=== PATIENT | female | born 1955 | race Two or more races ===

== ENCOUNTER 2023-12-18 18:16 | Emergency (ER) | payer BC, OTHER ==
[~2023-12-18] VITALS: Ht 160 cm; Wt 76.7 kg
[2023-12-18 18:37] VITALS: BP 132/108; PULSE 83; RESP 16; TEMP 97.1; O2SAT 92
[2023-12-18] MEDS: DexAMETHasone SOD PHOS 10MG/1ML VIAL INJ IM ONE (21:53)
[2023-12-18] MEDS ORDERED: METH4PAK PO (22:24)
== END 2023-12-18 22:41 | disposition home or self-care (01) ==
LOC: ER 18:16
DX: S39.012A Strain of muscle, fascia and tendon of lower back, initial encounter (principal); J45.909 Unspecified asthma, uncomplicated; M19.90 Unspecified osteoarthritis, unspecified site; Z98.890 Other specified postprocedural states; Z79.899 Other long term (current) drug therapy; W18.39XA Other fall on same level, initial encounter; Y93.89 Activity, other specified; Y92.89 Other specified places as the place of occurrence of the external cause; Y99.8 Other external cause status
CPT/HCPCS: 72100; 96372; 99283; J1100

== ENCOUNTER 2023-12-24 14:30 | Emergency (ER) | payer OTHER ==
[~2023-12-24] VITALS: Ht 160 cm; Wt 78.0 kg
[~2023-12-24 14:30] MED LIST: METH4PAK PO
[2023-12-24 16:21] LABS: Urine Bacteria None Seen /hpf (None Seen)
[2023-12-24 17:06] LABS: Urine Blood Negative /uL (Negative); Urine Clarity Clear (Clear); Urine Color Yellow (Yellow); Urine Hyaline Cast MOD /lpf (0 - 2); Urine Mucus FEW (None Seen); Urine Protein, UAD 1+ (Negative); Urine Specific Gravity 1.039 (1.001-1.035); Urine Urobilinogen 2 mg/dL (Negative); Urine WBC 6 /hpf (0 - 5)
[2023-12-24 18:29] VITALS: BP 123/88; PULSE 85; RESP 16; TEMP 97.4; O2SAT 96
[2023-12-24] MEDS ORDERED: ACE3T PO (18:49)
[2023-12-24] MEDS ORDERED: CYCL-837 PO (18:49)
[2023-12-24] MEDS ORDERED: BACDST PO (18:49)
[2023-12-24] MEDS: cefTRIAXone SOD 1,000 MG VL IM ONE (18:50)
[2023-12-24] MEDS: methylPREDNISolone SOD SUCC 125 MG/2 ML VL IM ONE (18:58)
[2023-12-24] MEDS ORDERED: KETOROLAC TROMETH 60MG/2ML VIAL IM ONE (19:00)
[2023-12-24] MEDS: ONDANSETRON ODT 4 MG TAB PO ONE (19:02)
== END 2023-12-24 18:53 | disposition home or self-care (01) ==
LOC: ER 14:30
DX: S39.012A Strain of muscle, fascia and tendon of lower back, initial encounter (principal); N39.0 Urinary tract infection, site not specified; J45.909 Unspecified asthma, uncomplicated; Z98.51 Tubal ligation status; X58.XXXA Exposure to other specified factors, initial encounter; Y93.89 Activity, other specified; Y92.89 Other specified places as the place of occurrence of the external cause; Y99.8 Other external cause status
CPT/HCPCS: 81001; 96372; 99284; J0696; J2919; Q0162; J1885

== ENCOUNTER 2024-07-03 14:03 | Inpatient (IN) | payer OTHER ==
[~2024-07-03] VITALS: Ht 160 cm; Wt 77.0 kg
[~2024-07-03 14:03] MED LIST changes: +ACE3T PO; +BACDST PO; +CYCL-837 PO
--- NOTE | 2024-07-03 14:27 | ED.PDOC ---
History of Present Illness HPI Comments 68-year-old female brought by paramedics from home because she was having dizziness chest pain could not recall events about an hour ago while sitting in her sofa. Patient never had symptoms like this in the past. Her blood pressure was 197/108. Blood pressure normalized after coming to the ER. She continues to have chest pain dizziness feeling different as per patient. Denies any other symptoms. Chief Complaint: High Blood Pressure Time Seen by MD: 14:22 Primary Care Provider: ODILIA Reviewed Notes: Nurses Notes, Medications, Allergies Allergies: Coded Allergies: NO KNOWN ALLERGIES (Unverified , 12/18/23) Home Meds Active Scripts Acetaminophen W/ Codeine (Tylenol W/Cod #3) 1 Tab Tb, 1 TAB PO Q6HPRN, #10 TAB 0 Refills Prov:CALVIN CHAKRABORTY 12/24/23 Sulfamethoxazole W/Trimethopri (Bactrim Ds Tablet) 1 Tab Tb, 1 TAB PO BID for 7 Days, #14 TAB 0 Refills Prov:CALVIN CHAKRABORTY 12/24/23 Cyclobenzaprine Hcl (Cyclobenzaprine Hcl) 5 Mg Tab, 1 TAB PO QHSP, #14 TAB 0 Refills Prov:CALVIN CHAKRABORTY 12/24/23 Methylprednisolone (Medrol Dosepak) 4 Mg Luis Manuel, 4 MG PO UD for 6 Days, #21 TAB UAD Prov:ERIN LONDON 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 12/18/23 Information Source: Patient, Emergency Med Personnel Mode of Arrival: EMS Severity: Moderate Timing: Hours Duration: Since onset Past Medical History PAST MEDICAL HISTORY: Arthritis, Asthma, High Lipids Surgical History: Tubal Ligation Family History Family History: Unknown Social History Smoker: Non-Smoker Alcohol: Occasionally Drugs: Denies Drug Use Lives In: Home Constitutional: denies: chills, diaphoresis, fatigue, fever, malaise, sweats, weakness, others EENTM: denies: blurred vision, double vision, ear bleeding, ear discharge, ear drainage, ear pain, ear ringing, eye pain, eye redness, hearing loss, mouth pain, mouth swelling, nasal discharge, nose bleeding, nose congestion, nose pain, photophobia, tearing, throat pain, throat swelling, voice changes, others Respiratory: denies: cough, hemoptysis, orthopnea, SOB at rest, shortness of breath, SOB with excertion, stridor, wheezing, others Cardiovascular: reports: chest pain; denies: dizzy spells, diaphoresis, Dyspnea on exertion, edema, irregular heart beat, left arm pain, lightheadedness, palpitations, PND, syncope, others Gastrointestinal: denies: abdomen distended, abdominal pain, blood streaked bowels, constipated, diarrhea, dysphagia, difficulty swallowing, hematemesis, melena, nausea, poor appetite, poor fluid intake, rectal bleeding, rectal pain, vomiting, others Genitourinary: denies: abnormal vagina bleeding, burning, dyspareunia, dysuria, flank pain, frequency, hematuria, incontinence, pain, , vagina discharge, urgency, others Neurological: reports: dizziness; denies: fainting, headache, left sided numbness, left sided weakness, numbness, paresthesia, pre-existing deficit, right sided numbness, right sided weakness, seizure, speech problems, tingling, tremors, weakness, others Musculoskeletal: denies: back pain, gout, joint pain, joint swelling, muscle pain, muscle stiffness, neck pain, others Integumetry: denies: bruises, change in color, change in hair/nails, dryness, laceration, lesions, lumps, rash, wounds, others Allergic/Immunocompromised: denies: Difficulty Healing, Frequent Infections, Hives, Itching, others Hematologic/Lymphatic: denies: anemia, blood clots, easy bleeding, easy bruising, swollen glands, others Endocrine: denies: excessive hunger, excessive sweating, excessive thirst, excessive urination, flushing, intolerance to cold, intolerance to heat, unexplained weight gain, unexplained weight loss, others Psychiatric: denies: anxiety, bipolar disorder, depression, hopeless, panic disorder, schizophrenia, sleepless, suicidal, others Physical Exam General Appearance: Moderate Distress HEENT: Normal ENT Inspection, Pharynx Normal, TMs Normal Neck: Full Range of Motion, Non-Tender, Normal, Normal Inspection Respiratory: Chest Non-Tender, Lungs Clear, No Accessory Muscle Use, No Respiratory Distress, Normal Breath Sounds Cardiovascular: No Edema, No JVD, No Murmur, No Gallop, Normal Peripheral Pulses, Regular Rate/Rhythm Breast Exam: Deferred Gastrointestinal: No Organomegaly, Non Tender, No Pulsatile Mass, Normal Bowel Sounds, Soft Genitalia: Deferred Pelvic: Deferred Rectal: Deferred Extremities: No calf tenderness, Normal inspection, No pedal edema Musculoskeletal : Apperance: Normal 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 Was a procedure done?: No EKG EKG : [place]: Normal Cardiac Rhythm: NSR Differential Dx Considerations may include: Autonomic disorder Electrolyte imbalance X-Ray, Labs, Meds, VS Vital Signs Date Time Temp Pulse Resp B/P (MAP) Pulse Ox O2 Delivery O2 Flow Rate FiO2 07/03/24 14:52 92 13 94 Room Air* 0 21 07/03/24 14:51 98.4 92 13 147/78 (101) 94 98.4 07/03/24 14:30 77 07/03/24 14:15 98.1 74 21 166/95 (118) 98 98.1 07/03/24 14:07 73 Lab Test 07/03/24 15:33 07/03/24 14:32 Range/Units Urine Color Pending Urine Clarity Pending Urine pH Pending Urine Specific [place] Pending Urine Protein Pending Urine Ketones Pending Urine Blood Pending Urine Nitrite Pending Urine Bilirubin Pending Urine Urobilinogen Pending Urine Leukocyte Esterase Pending Urine RBC Pending Urine Microscopic WBC Pending Urine Squamous Epithelial Cells Pending Urine Bacteria Pending Urine Glucose Pending White Blood Count 4.4 4.4-10.8 10^3/uL Red Blood Count 4.22 4.0-5.20 10^6/uL Hemoglobin 12.8 12.2-16.2 g/dL Hematocrit 38.5 36.0-46.0 % Mean Corpuscular Volume 91.2 80.0-100.0 fL Mean Corpuscular Hemoglobin 30.2 28.0-32.0 pg Mean Corpuscular Hemoglobin Concent 33.2 32.0-36.0 g/dL Red Cell Distribution Width 13.3 11.8-14.3 % Platelet Count 181 140-450 10^3/uL Mean Platelet Volume 8.0 6.9-10.8 fL Neutrophils (%) (Auto) 70.3 37.0-80.0 % Lymphocytes (%) (Auto) 20.5 10.0-50.0 % Monocytes (%) (Auto) 7.0 0.0-12.0 % Eosinophils (%) (Auto) 0.8 0.0-7.0 % Basophils (%) (Auto) 1.4 0.0-2.0 % Neutrophils # (Auto) 3.1 1.6-8.6 10 ^3/uL Lymphocytes # (Auto) 0.9 0.4-5.4 10 ^3/uL Monocytes # (Auto) 0.3 0-1.3 10 ^3/uL Eosinophils # (Auto) 0 0-0.8 10 ^3/uL Basophils # (Auto) 0.1 0-0.2 10 ^3/uL Nucleated Red Blood Cells 0.1 % Sodium Level 142 136-145 mmol/L Potassium Level 4.6 3.5-5.1 mmol/L Chloride Level 104 98-107 mmol/L Carbon Dioxide Level 30 20-31 mmol/L Anion Gap 8 5-15 Blood Urea Nitrogen 16 9-23 mg/dL Creatinine 0.83 0.550-1.02 mg/dL Glomerular Filtration Rate Calc 78 >90 mL/min BUN/Creatinine Ratio 19.3 10.0-20.0 Serum Glucose 113 H 74-106 mg/dL Calcium Level 10.1 8.7-10.4 mg/dL Troponin I High Sensitivity 9 </=34 ng/L Current Medications Medications (Trade) Dose Ordered Sig/Froy Route Start Time Stop Time Status Last Admin Meclizine HCl (Antivert Tablet) 25 mg ONCE ONCE PO 07/03/24 14:30 07/03/24 14:31 DC 07/03/24 14:45 Aspirin 325 mg ONCE ONCE PO 07/03/24 14:30 07/03/24 14:31 DC 07/03/24 14:45 Patient alert pain Complaining of chest pain dizziness. Vitals stable. Answering questions. Blood pressure normalized. Saturation pristine on room air. Has good muscle strength. CT scan of the head not show any acute changes small-vessel disease. Possible TIA. Reviewed her history. Explained to the patient. Continue monitoring. Possibly will need MRI. EKG reviewed does not show any acute changes. Time of 1ST Reevaluation: 14:26 Reevaluation 1ST: Unchanged Patient Education/Counseling: Diagnosis, Treatment, Prognosis Family Education/Counseling: No Family Present Departure 1 Departure Time of Disposition: 14:27 Impression: Primary Impression: TIA (transient ischemic attack) Additional Impression: Autonomic disorder Disposition: ADMITTED INPATIENT Admit to: Med Surg Condition: Guarded Critical Care Note Critical Care Time?: No Stability Stability form required: No Heart Score Heart Score: Heart Score Response (Comments) Value History Slightly Suspicious 0 EKG Normal 0 Age >65 2 Risk Factors 1 or 2 risk factors 1 Troponin Normal limit 0 Total 3 DAPHNE SERRANO MD Jul 03, 2024 14:27
[2024-07-03] MEDS: ASPirin 325 MG TAB PO ONE (14:45)
[2024-07-03] MEDS: MECLIZINE HCL 25 MG TAB PO ONE (14:45)
[2024-07-03 14:49] LABS: Basophils # (auto) 0.1 10 ^3/uL (0-0.2); Basophils % (auto) 1.4 % (0.0-2.0); Eosinophils # (auto) 0 10 ^3/uL (0-0.8); Eosinophils % (auto) 0.8 % (0.0-7.0); Hematocrit 38.5 % (36.0-46.0); Hemoglobin 12.8 g/dL (12.2-16.2); Lymphocytes # (auto) 0.9 10 ^3/uL (0.4-5.4); Lymphocytes % (auto) 20.5 % (10.0-50.0); Mean Corpuscular Hemoglobin 30.2 pg (28.0-32.0); Mean Corpuscular Hgb Conc. 33.2 g/dL (32.0-36.0); Mean Corpuscular Volume 91.2 fL (80.0-100.0); Monocytes # (auto) 0.3 10 ^3/uL (0-1.3); Neutrophils # (auto) 3.1 10 ^3/uL (1.6-8.6); Neutrophils % (auto) 70.3 % (37.0-80.0); Nucleated Red Blood Cells % 0.1 %; Platelet Count (auto) 181 10^3/uL (140-450); Red Blood Cells 4.22 10^6/uL (4.0-5.20); Red Cell Distribution Width 13.3 % (11.8-14.3); White Blood Cell 4.4 10^3/uL (4.4-10.8)
[2024-07-03 14:52] VITALS: PULSE 92; RESP 13; O2SAT 94
[2024-07-03 14:56] LABS: Chloride 104 mmol/L (98-107); Potassium 4.6 mmol/L (3.5-5.1); Sodium 142 mmol/L (136-145)
[2024-07-03 14:57] LABS: Anion Gap 8 (5-15); Calcium 10.1 mg/dL (8.7-10.4); Carbon Dioxide 30 mmol/L (20-31)
--- NOTE | 2024-07-03 15:00 | DVH ---
EXAM: CT Head Without Intravenous Contrast CLINICAL INDICATION: tia TECHNIQUE: Axial computed tomography images of the head/brain without intravenous contrast. This CT exam was performed using one or more of the following dose reduction techniques: automated exposure control, adjustment of the mA and/or kV according to patient size, and/or use of iterative reconstru ction technique. CONTRAST: COMPARISON: None FINDINGS: BRAIN AND EXTRA-AXIAL SPACES: The cerebral and cerebellar sulci are mildly prominent consistent wit h mild brain atrophy. No acute intracranial hemorrhage, midline shift or mass effect. If symptoms pe rsist, further evaluation with MRI is recommended. Mild areas of decreased attenuation in the deep c erebral white matter are consistent with mild small vessel ischemic/degenerative changes. BONES/JOINTS: Unremarkable. No acute fracture. SOFT TISSUES: Unremarkable. SINUSES: Unremarkable as visualized. No acute sinusitis. MASTOID AIR CELLS: Unremarkable as visualized. No mastoid effusion. OTHER FINDINGS: . . . . IMPRESSION: 1. No acute intracranial hemorrhage, midline shift or mass effect. If symptoms persist, further eval uation with MRI is recommended. 2. Mild small vessel ischemic/degenerative changes.
[2024-07-03 15:02] LABS: BUN/Creatinine Ratio 19.3 (10.0-20.0); Blood Urea Nitrogen 16 mg/dL (9-23)
[2024-07-03 15:04] LABS: Glucose 113 mg/dL (74-106)
[2024-07-03 15:42] LABS: Urine Bacteria None Seen /hpf (None Seen)
[2024-07-03 15:53] LABS: Urine Blood Negative /uL (Negative); Urine Clarity Clear (Clear); Urine Color Light-Yellow (Yellow); Urine Hyaline Cast FEW /lpf (0 - 2); Urine Protein, UAD Negative (Negative); Urine Specific Gravity 1.011 (1.001-1.035); Urine Squamous Epithelial Cell FEW /hpf (<5); Urine Urobilinogen Normal (Negative); Urine WBC 3 /HPF (0-5)
[2024-07-03 19:27] VITALS: PULSE 64; RESP 10; O2SAT 95
--- NOTE | 2024-07-03 19:27 | DVHHP2 ---
History of Present Illness Reason for Visit: Generalized weakness History of Present Illness This is a 68-year-old female with history of arthritis, asthma, hyperlipidemia who presents to ED via EMS due to complaints of dizziness associated with chest pain and mild disorientation that occurred today. The patient denies having similar symptoms in the past. The patient blood pressure noted to be 197/108, has never been diagnosed with hypertension. When speaking with the patient, she comments on increased stressors in her life that may be contributing to her symptoms. She denies recent injury or trauma to her head. She states that she started having hot flash then pain in the back of her head with notable palpitation and felt that her blood pressure was rising ending with brain fog. The patient is concerned about her symptoms and would like to be further evaluated and treated. The patient will be admitted under hospitalist care to the telemetry unit for continuous monitoring. The patient denies fever, chills, headache, dizziness, palpitation, chest pain, nausea, vomiting, a bdominal pain, diarrhea, constipation and other associated symptoms. The plan has been discussed with the patient in which all questions concerns have been addressed. Cardiovascular: hyperipidemia Pulmonary: Asthma Musculoskeletal: Other (Arthritis) Past Surgical History: Tubal Ligation Past Surgical History Bilateral carpal tunnel syndrome Lanieedel tonya Family History: None Smoke: No ALCOHOL: none Drugs: None Lives: with Family Domestic Violence: Neg Review of Systems Constitutional: Yes: Weakness Cardiovascular: Palpitations Neurological: Confusion, Other (Dizziness) Allergies: Coded Allergies: NO KNOWN ALLERGIES (Unverified , 12/18/23) Exam Vital Signs Vital Signs Date Time Temp Pulse Resp B/P (MAP) Pulse Ox O2 Delivery O2 Flow Rate FiO2 07/03/24 18:00 65 10 122/74 (90) 07/03/24 14:52 94 Room Air* 0 21 07/03/24 14:51 98.4 98.4 General Appearance: Alert, Oriented X3, Cooperative, No acute distress HEENT: Atraumatic, PERRLA, Mucous membr. moist/pink Respiratory: Clear to auscultation, Normal air movement Cardiovascular: Normal S1, Normal S2, No murmurs Abdominal: Normal bowel sounds, Soft, No tenderness, No hepatospenomegaly, No masses Extremities: No clubbing, No cyanosis, No edema, Normal pulses, No tenderness/swelling Skin: No rashes, No breakdown Neuro: Normal gait, Normal speech, Strength at 5/5 X4 ext, Normal tone, Sensation intact, Cranial nerves 3-12 NL, Reflexes 2+ Psych/Mental Status: Mental status NL Labs/Xrays Labs Test 07/03/24 16:40 07/03/24 15:33 07/03/24 14:32 Range/Units Troponin I High Sensitivity 25 </=34 ng/L Urine Color Light-yellow Yellow Urine Clarity Clear Clear Urine pH 7.0 5.0-9.0 Urine Specific [place] 1.011 1.001-1.035 Urine Protein Negative Negative Urine Ketones Negative Negative Urine Blood Negative Negative /uL Urine Nitrite Negative Negative Urine Bilirubin Negative Negative Urine Urobilinogen Normal Negative mg/dL Urine Leukocyte Esterase 1+ Negative /uL Urine RBC 3 0 - 4 /hpf Urine Microscopic WBC 3 0-5 /HPF Urine Squamous Epithelial Cells Few <5 /hpf Urine Bacteria None seen None Seen /hpf Urine Hyaline Casts Few 0 - 2 /lpf Urine Glucose Normal Normal mg/dL White Blood Count 4.4 4.4-10.8 10^3/uL Red Blood Count 4.22 4.0-5.20 10^6/uL Hemoglobin 12.8 12.2-16.2 g/dL Hematocrit 38.5 36.0-46.0 % Mean Corpuscular Volume 91.2 80.0-100.0 fL Mean Corpuscular Hemoglobin 30.2 28.0-32.0 pg Mean Corpuscular Hemoglobin Concent 33.2 32.0-36.0 g/dL Red Cell Distribution Width 13.3 11.8-14.3 % Platelet Count 181 140-450 10^3/uL Mean Platelet Volume 8.0 6.9-10.8 fL Neutrophils (%) (Auto) 70.3 37.0-80.0 % Lymphocytes (%) (Auto) 20.5 10.0-50.0 % Monocytes (%) (Auto) 7.0 0.0-12.0 % Eosinophils (%) (Auto) 0.8 0.0-7.0 % Basophils (%) (Auto) 1.4 0.0-2.0 % Neutrophils # (Auto) 3.1 1.6-8.6 10 ^3/uL Lymphocytes # (Auto) 0.9 0.4-5.4 10 ^3/uL Monocytes # (Auto) 0.3 0-1.3 10 ^3/uL Eosinophils # (Auto) 0 0-0.8 10 ^3/uL Basophils # (Auto) 0.1 0-0.2 10 ^3/uL Nucleated Red Blood Cells 0.1 % Sodium Level 142 136-145 mmol/L Potassium Level 4.6 3.5-5.1 mmol/L Chloride Level 104 98-107 mmol/L Carbon Dioxide Level 30 20-31 mmol/L Anion Gap 8 5-15 Blood Urea Nitrogen 16 9-23 mg/dL Creatinine 0.83 0.550-1.02 mg/dL Glomerular Filtration Rate Calc 78 >90 mL/min BUN/Creatinine Ratio 19.3 10.0-20.0 Serum Glucose 113 H 74-106 mg/dL Calcium Level 10.1 8.7-10.4 mg/dL ORDERING PHYSICIAN: DPAHNE SERRANO MD PROCEDURE(s): HWOCT - HEAD WITHOUT CONTRAST REASON: tia ORDER NUMBER(s): [id number], ACCESSION NUMBER(s): [id number] EXAM: CT Head Without Intravenous Contrast CLINICAL INDICATION: tia TECHNIQUE: Axial computed tomography images of the head/brain without intraveno us contrast. This CT exam was performed using one or more of the following dose reduction techniques: automated exposure control, adjustment of the mA and/or kV according to patient size, and/or use of iterative reconstruction technique. CONTRAST: COMPARISON: None FINDINGS: BRAIN AND EXTRA-AXIAL SPACES: The cerebral and cerebellar sulci are mildly prominent consistent with mild brain atrophy. No acute intracranial hemorrhage, midline shift or mass effect. If symptoms persist, further evaluation with MRI is recommended. Mild areas of decreased attenuation in the deep cerebral white matter are consistent with mild small vessel ischemic/degenerative changes. BONES/JOINTS: Unremarkable. No acute fracture. SOFT TISSUES: Unremarkable. SINUSES: Unremarkable as visualized. No acute sinusitis. MASTOID AIR CELLS: Unremarkable as visualized. No mastoid effusion. OTHER FINDINGS: . . . . IMPRESSION: 1. No acute intracranial hemorrhage, midline shift or mass effect. If symptoms persist, further evaluation with MRI is recommended. 2. Mild small vessel ischemic/degenerative changes. ATED BY: KIANA CASTRO MD DICTATED DATE/TIME: 07/03/24 [id number] SIGNED BY: KIANA CASTRO MD SIGNED DATE/TIME: 07/03/248 CC: Assessment/Plan Assessment/Plan Generalized weakness--patient with chief complaint of dizziness associated with chest pain, palpitation and brain fog that started today Denies having these symptoms in the past No recent injury or trauma to her head In ED her blood pressure was 197/108 Patient reports increased life stressor Admit to telemetry unit for continuous monitoring Reviewed CBC which was normal Urinalysis is normal Reviewed BMP which is normal Cardiac enzyme negative x2 Reviewed CT head which is negative Meclizine as needed for dizziness Orthostatic BP Q shift Carotid Doppler study pending Echocardiogram pending We will consider workforce development vice president if further evaluation and recommendation as needed ER physician consult neuro for evaluation and recommendation Elevated blood pressure The patient has not been diagnosed with hypertension Start lisinopril now and daily Continue to monitor BP Asthma-controlled Albuterol q.2h p.r.n. shortness of breath Reconcile home medication DVT prophylaxis PUD prophylaxis not indicated no history of GERD Labs in a.m. Discussed plan of care with the patient and primary RN in which all questions concerns have been addressed Plan discussed with: Patient Date of Service: Jul 03, 2024 Billing Provider: MARII DIALLO Common Visit Codes: [id number] INP/OBS CARE (HIGH) MARII DIALLO Jul 03, 2024 19:27
[2024-07-03] MEDS ORDERED: MORPHINE SULFATE INJ 2 MG/ml SYRG IV PRN (19:30)
[2024-07-03] MEDS ORDERED: NITROGLYCERIN 0.4 MG SL TAB SL PRN (19:30)
[2024-07-03] MEDS ORDERED: MECLIZINE HCL 25 MG TAB PO PRN (19:45)
[2024-07-03] MEDS: CYCLOBENZAPRINE HCL 10 MG TAB PO SCH (22:00)
[2024-07-03] MEDS: ACETAMINOPHEN 325 MG TAB PO PRN (22:09)
[2024-07-03] MEDS: ACETAMINOPHEN/CODEINE#3 (300/30mg) TAB PO PRN (22:13)
[2024-07-04] VITALS (9 sets, daily range): BP systolic 120–141; BP diastolic 63–75; PULSE 56–96; RESP 14–18; TEMP 97.9–99; O2SAT 93–99
[2024-07-04 06:05] LABS: Basophils # (auto) 0 10 ^3/uL (0-0.2); Basophils % (auto) 0.4 % (0.0-2.0); Eosinophils # (auto) 0.2 10 ^3/uL (0-0.8); Eosinophils % (auto) 3.2 % (0.0-7.0); Hematocrit 38.2 % (36.0-46.0); Hemoglobin 12.7 g/dL (12.2-16.2); Lymphocytes # (auto) 1.7 10 ^3/uL (0.4-5.4); Lymphocytes % (auto) 30.9 % (10.0-50.0); Mean Corpuscular Hemoglobin 30.3 pg (28.0-32.0); Mean Corpuscular Hgb Conc. 33.2 g/dL (32.0-36.0); Mean Corpuscular Volume 91.4 fL (80.0-100.0); Monocytes # (auto) 0.5 10 ^3/uL (0-1.3); Monocytes % (auto) 9.4 % (0.0-12.0); Neutrophils # (auto) 3.1 10 ^3/uL (1.6-8.6); Neutrophils % (auto) 56.1 % (37.0-80.0); Platelet Count (auto) 179 10^3/uL (140-450); Red Blood Cells 4.18 10^6/uL (4.0-5.20); Red Cell Distribution Width 13.4 % (11.8-14.3); White Blood Cell 5.5 10^3/uL (4.4-10.8)
[2024-07-04 06:22] LABS: Alanine Aminotransferase 35 U/L (7-40); Albumin 4.7 g/dL (3.2-4.8); Alkaline Phosphatase 49 U/L (46-116); Anion Gap 9 (5-15); Aspartate Aminotransferase 18 U/L (13-40); BUN/Creatinine Ratio 15.9 (10.0-20.0); Blood Urea Nitrogen 13 mg/dL (9-23); Calcium 9.9 mg/dL (8.7-10.4); Carbon Dioxide 27 mmol/L (20-31); Chloride 107 mmol/L (98-107); Glucose 93 mg/dL (74-106); Potassium 3.6 mmol/L (3.5-5.1); Sodium 143 mmol/L (136-145); Total Protein 7.1 g/dL (5.7-8.2)
[2024-07-04 06:23] LABS: Bilirubin, Total 0.5 mg/dL (0.2-1.0)
[2024-07-04] MEDS: ASPirin 81 mg TAB PO SCH (09:44)
[2024-07-04] MEDS: ENOXAPARIN SOD 40 MG/0.4 ML SYRINGE SC SCH (09:46)
[2024-07-04] MEDS ORDERED: ATORVASTATIN 20 MG TAB PO ONE (10:15)
--- NOTE | 2024-07-04 10:57 | ECG ---
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
--- NOTE | 2024-07-04 11:09 | DVH ---
PROCEDURE: US CAROTID DUPLX W COLOR DOP 07/04/2024 10:09 AM INDICATION: Dizziness COMPARISON: None TECHNIQUE: Real-time grayscale and color Doppler images of the neck arteries were obtained with spect ral analysis performed. FINDINGS: RIGHT: No significant atherosclerotic plaque identified in the carotid. Normal spectral waveforms are seen. ICA peak systolic velocity: 114 cm/s ICA end-diastolic velocity: 42 cm/s ICA/CCA ratios: 1.2 LEFT: No significant atherosclerotic plaque identified in the carotid. Normal spectral waveforms are seen. ICA peak systolic velocity: 133 cm/s ICA end-diastolic velocity: 48 cm/s ICA/CCA ratios: 1.4 VERTEBRAL ARTERIES: Normal antegrade flow is seen bilaterally. Normal spectral waveforms. IMPRESSION: 1. No hemodynamically significant carotid artery stenosis identified bilaterally. Reference: Radiology 2003; 229:340-346 Normal ICA PSV is <125 cm/sec and no plaque or intimal thickening is visible sonographically addition al criteria include ICA/CCA PSV ratio <2.0 and ICA EDV <40 cm/sec <50% ICA stenosis ICA PSV is <125 cm/sec and plaque or intimal thickening is visible sonographically additional criteria include ICA/CCA PSV ratio <2.0 and ICA EDV <40 cm/sec 50-69% ICA stenosis ICA PSV is 125-230 cm/sec and plaque is visible sonographically additional criter ia include ICA/CCA PSV ratio of 2.0-4.0 and ICA EDV of 40-100 cm/sec 70% ICA stenosis but less than near occlusion ICA PSV is >230 cm/sec and visible plaque and luminal narrowing are seen at fine-scale and color Doppler ultrasound (the higher the Doppler parameters lie above the threshold of 230 cm/sec, the greater the likelihood of severe disease) additional criteria include ICA/CCA PSV ratio >4 and ICA EDV >100 cm/sec
[2024-07-04] MEDS: LEVALBUTEROL HCL 1.25 MG/3 ML NEB NEB SCH (11:12)
[2024-07-04] MEDS: IPRATROPIUM BROM 0.5 MG/2.5ML INH SOL NEB SCH (11:12)
[2024-07-04] MEDS: PANTOPRAZOLE 40 MG/10 ML VIAL INJ IV ONE (12:52)
--- NOTE | 2024-07-04 14:04 | DVHSR ---
APPROVED REPORT EXAM: Two-dimensional and M-mode echocardiogram with Doppler and color Doppler. Blood Pressure: 132/68 mmHg INDICATION Dizziness RISK FACTORS Height: 5'3", Weight: 167 DIMENSIONS LVDd4.3 (3.8-5.7cm)LA (2D)3.8 (1.9-4.0cm)Aortic Root3.3 (2.0-3.7cm) LVDs2.8 (2.5-4.0cm)LA (MM) (1.9-4.0cm)Aortic Cusp Exc1.7 (1.5-2.0cm) EF (%) 65.0 (55-70%)Rt. Atrium3.2 (1.9-4.0cm)Asc. Aorta cm IVSd0.8 (0.7-1.1cm)RV (D) (1.8-2.4cm) PWd0.9 (0.7-1.1cm) Mitral Valve MitralMitral Stenosis E wave0.92m/sMV Mean GR.mmHg A wave0.82m/sMV Peak GR.mmHg E/A ratio1.12D MVAcm2 DECEL [id number] 1/2 Timems Aortic Valve Aortic ValveAortic Stenosis V10.97m/Norberto Mean GR.5mmHg V21.49m/Norberto Peak GR.9mmHg LVOT Diameter2.0 (1.8-2.4cm)Doppler AVA2.04cm2 Pulmonic Valve V20.77m/s Tricuspid Valve TR Velocity2.59m/s [id number] Conclusion MILD LVH AND MILD LV DIASTOLIC DYSFUNCTION LV EF IS 70% AND IS NORMAL NORMAL VALVES NORMAL RV FUNCTION AND SIZE RVSP IS 30 MM OF HG AND IS NORMAL NO EFFUSION
[2024-07-04] MEDS: D5W 5% 1,000 ML IV SCH (16:52)
--- NOTE | 2024-07-04 17:32 | DVHPNRES ---
Progress Note Date Seen: Jul 04, 2024 Resident Creating Document: ERNESTO MUNOZ RESIDENT Medical Necessity Reason Pt with a Central, PICC or Fol: No Subjective Review of Systems This is a 68-year-old female with history of arthritis, asthma, hyperlipidemia who presents to ED via EMS due to complaints of dizziness associated with chest pain and mild disorientation that occurred today. The patient denies having similar symptoms in the past. The patient blood pressure noted to be 197/108, has never been diagnosed with hypertension. When speaking with the patient, she comments on increased stressors in her life that may be contributing to her symptoms. She denies recent injury or trauma to her head. She states that she started having hot flash then pain in the back of her head with notable palpitation and felt that her blood pressure was rising ending with brain fog. The patient is concerned about her symptoms and would like to be further evaluated and treated. The patient will be admitted under hospitalist care to the telemetry unit for continuous monitoring. The patient denies fever, chills, headache, dizziness, palpitation, chest pain, nausea, vomiting, abdominal pain, diarrhea, constipation and other associated symptoms. CT head negative for acute intracranial hemorrhage or infarction. Mild small vessel ischemic/degenerative changes. Carotid Doppler- 1. No hemodynamically significant carotid artery stenosis identified bilaterally. ECHO 2D revealed LVEF 70%, LVH. Mild LV diastolic dysfunction, RVSP 30 mm of mercury. Cardiovascular: hyperipidemia, asthma, carpal tunnel syndrome Past Surgical History: Tubal Ligation Past Surgical History Bilateral carpal tunnel syndrome Family History: None Smoke: No ALCOHOL: none Drugs: None Lives: with Family Domestic Violence: Neg Patient was seen today at the bedside. Cardiovascular- deny acute chest pain or shortness of breath or cough or palpitation Respiratory denies cough or short of breath or wheezing Musculoskeletal-denies acute joint swelling or tenderness or redness Neurological- denies acute dysarthria, dysphagia, change in vision Psychiatry- denies depression or SI or HI Skin- denies acute rash or purpura Patient was seen today for clinical evaluation. Labs and chart reviewed. Patient still complained of dizziness, nausea and vomiting. Chest pain no shortness a breath likely due to hypertensive urgency. No blood. Patient was put on IV fluid. CT head negative for acute intracranial hemorrhage or infarction. Mild small vessel ischemic/degenerative changes. Carotid Doppler- 1. No hemodynamically significant carotid artery stenosis identified bilaterally. Objective vital signs Vital Sign Date Time Temp Pulse Resp B/P (MAP) Pulse Ox O2 Delivery O2 Flow Rate FiO2 07/04/24 15:32 97.9 68 121/64 (83) 95 97.9 07/04/24 15:32 16 Room Air* 0 21 medications Current Medications Medications Dose Ordered Sig/Froy Route Start Time Stop Time Status Last Admin Dose Admin Enoxaparin Sodium 40 mg DAILY SC 07/04/24 10:00 Acetaminophen 650 mg Q6HP PRN PO 07/03/24 19:30 07/04/24 12:52 650 MG Nitroglycerin 0.4 mg Q5MINP PRN SL 07/03/24 19:30 Morphine Sulfate 2 mg Q30M PRN IV 07/03/24 19:30 Acetaminophen/ Codeine Phosphate 1 tab Q6HPRN PRN PO 07/04/24 00:00 07/03/24 22:13 1 TAB Cyclobenzaprine HCl 5 mg QHSP PO 07/03/24 22:00 Aspirin 81 mg DAILY PO 07/04/24 10:00 07/04/24 09:44 81 MG Atorvastatin Calcium 40 mg HS PO 07/04/24 22:00 Levalbuterol HCl 1.25 mg Q6HR NEB 07/04/24 12:00 07/04/24 11:12 1.25 MG Ipratropium [place] 0.5 mg Q6HWA NEB 07/04/24 12:00 07/04/24 11:12 0.5 MG Pantoprazole Sodium 40 mg DAILY IV 07/05/24 10:00 Meclizine HCl 25 mg Q12HR PO 07/04/24 22:00 Dextrose 1,000 ml @ 75 mls/hr [id number] IV 07/04/24 15:45 07/04/24 16:52 75 MLS/HR Examination General examination- alert, oriented HEENT- PEERLA, no acute nasal discharge Cardiovascular- S1-S2 audible, rate and rhythm regular, no murmur Respiratory- CTAB, no wheeze or rhonchi Gastrointestinal-nontender, bowel sound+. Nondistended Musculoskeletal-no acute joint swelling or tenderness or redness Lower extremity- no leg edema Neurological- cranial nerves intact, no acute dysarthria or dysphagia Psychiatry- denies depression or SI or HI Skin- no acute rash or purpura laboratory and microbiology Laboratory Tests 07/04/24 05:32 Test 07/04/24 05:32 Range/Units Serum Glucose 93 74-106 mg/dL Problem List/Assessment/Plan Problem List/Assessment/Plan Assessment and plan Hypertensive urgency Intractable nausea and vomiting, unable to tolerate oral diet Dizziness, headache likely due to hypertensive urgency Hypertensive cardiomyopathy Chest pain and shortness of breaths likely due to hypertensive urgency Asthma, no acute exacerbation Hyperlipidemia Obesity Plan Continue current medication Continue IV fluid patient can not tolerate p.o. fluid, intractable nausea and vomiting To continue meclizine as prescribed Monitor blood pressure Goals of care, Code status ; discussed with >15 minutes PUD prophylaxis: Pantoprazole DVT prophylaxis: Lovenox Plan discussed with Dr. Nieto , nursing staff, Total time spent on patient evaluation, chart review, assessment and plan, discussion discussion >35 minutes Plan discussed with: Patient, Other (RN) My Orders My Orders Orders - ERNESTO MUNOZ Procedure Category Date Status Time Pantoprazole PHA 07/05/24 In Process (Protonix) 10:00 Meclizine Tablet PHA 07/04/24 In Process (Antivert Tablet) 22:00 Pt Request For Service PT 07/04/24 Logged 15:32 D5w 5% (Dextrose 5%) PHA 07/04/24 In Process 15:45 Date of Service: Jul 04, 2024 Billing Provider: KIERA MARIA MD Common Visit Codes: [id number] INP/OBS CARE(HIGH) ERNESTO MUNOZ Jul 04, 2024 17:32 KIERA MARIA MD Jul 07, 2024 00:54
[2024-07-04] MEDS: MECLIZINE HCL 25 MG TAB PO SCH (21:32)
[2024-07-05] VITALS (11 sets, daily range): BP systolic 115–144; BP diastolic 66–82; PULSE 56–77; RESP 14–18; TEMP 36.9; O2SAT 94–98
[2024-07-05] MEDS: ATORVASTATIN 20 MG TAB PO SCH (02:06)
[2024-07-05 06:43] LABS: Chloride 107 mmol/L (98-107); Potassium 4.3 mmol/L (3.5-5.1); Sodium 142 mmol/L (136-145)
[2024-07-05 06:44] LABS: Anion Gap 8 (5-15); Carbon Dioxide 27 mmol/L (20-31)
[2024-07-05 06:45] LABS: Calcium 9.9 mg/dL (8.7-10.4)
[2024-07-05 06:49] LABS: BUN/Creatinine Ratio 14.5 (10.0-20.0); Blood Urea Nitrogen 11 mg/dL (9-23); Glucose 97 mg/dL (74-106)
[2024-07-05 06:50] LABS: Magnesium 2.2 mg/dL (1.6-2.6)
[2024-07-05] MEDS: PANTOPRAZOLE 40 MG/10 ML VIAL INJ IV SCH (08:54)
[2024-07-05] MEDS ORDERED: AMLO1TAB22 PO (15:56)
--- NOTE | 2024-07-05 17:42 | DVHDSRES ---
Discharge Summary Date of Admission Resident Creating Document: ERNESTO MUNOZ RESIDENT Jul 03, 2024 at 19:27 Date of Discharge: Jul 05, 2024 Admitting Diagnosis Hypertensive urgency Labs/Diagnostic Data: Laboratory Results Test 07/05/24 06:00 07/04/24 05:32 07/03/24 19:44 07/03/24 15:33 Sodium Level 142 mmol/L (136-145) Potassium Level 4.3 mmol/L (3.5-5.1) Chloride Level 107 mmol/L (98-107) Carbon Dioxide Level 27 mmol/L (20-31) Anion Gap 8 (5-15) Blood Urea Nitrogen 11 mg/dL (9-23) Creatinine 0.76 mg/dL (0.550-1.02) Glomerular Filtration Rate Calc 86 mL/min (>90) BUN/Creatinine Ratio 14.5 (10.0-20.0) Serum Glucose 97 mg/dL (74-106) Hemoglobin A1c 5.5 % A1C (<5.7) Calcium Level 9.9 mg/dL (8.7-10.4) Magnesium Level 2.2 mg/dL (1.6-2.6) Thyroid Stimulating Hormone (TSH) 4.55 uIU/mL (0.55-4.78) White Blood Count 5.5 10^3/uL (4.4-10.8) Red Blood Count 4.18 10^6/uL (4.0-5.20) Hemoglobin 12.7 g/dL (12.2-16.2) Hematocrit 38.2 % (36.0-46.0) Mean Corpuscular Volume 91.4 fL (80.0-100.0) Mean Corpuscular Hemoglobin 30.3 pg (28.0-32.0) Mean Corpuscular Hemoglobin Concent 33.2 g/dL (32.0-36.0) Red Cell Distribution Width 13.4 % (11.8-14.3) Platelet Count 179 10^3/uL (140-450) Mean Platelet Volume 7.8 fL (6.9-10.8) Neutrophils (%) (Auto) 56.1 % (37.0-80.0) Lymphocytes (%) (Auto) 30.9 % (10.0-50.0) Monocytes (%) (Auto) 9.4 % (0.0-12.0) Eosinophils (%) (Auto) 3.2 % (0.0-7.0) Basophils (%) (Auto) 0.4 % (0.0-2.0) Neutrophils # (Auto) 3.1 10 ^3/uL (1.6-8.6) Lymphocytes # (Auto) 1.7 10 ^3/uL (0.4-5.4) Monocytes # (Auto) 0.5 10 ^3/uL (0-1.3) Eosinophils # (Auto) 0.2 10 ^3/uL (0-0.8) Basophils # (Auto) 0 10 ^3/uL (0-0.2) Nucleated Red Blood Cells 0.0 % Total Bilirubin 0.5 mg/dL (0.2-1.0) Aspartate Amino Transferase (AST) 18 U/L (13-40) Alanine Aminotransferase (ALT) 35 U/L (7-40) Alkaline Phosphatase 49 U/L (46-116) Total Protein 7.1 g/dL (5.7-8.2) Albumin 4.7 g/dL (3.2-4.8) Troponin I High Sensitivity 26 ng/L (</=34) Urine Color Light-yellow (Yellow) Urine Clarity Clear (Clear) Urine pH 7.0 (5.0-9.0) Urine Specific [place] 1.011 (1.001-1.035) Urine Protein Negative (Negative) Urine Ketones Negative (Negative) Urine Blood Negative /uL (Negative) Urine Nitrite Negative (Negative) Urine Bilirubin Negative (Negative) Urine Urobilinogen Normal mg/dL (Negative) Urine Leukocyte Esterase 1+ /uL (Negative) Urine RBC 3 /hpf (0 - 4) Urine Microscopic WBC 3 /HPF (0-5) Urine Squamous Epithelial Cells Few /hpf (<5) Urine Bacteria None seen /hpf (None Seen) Urine Hyaline Casts Few /lpf (0 - 2) Urine Glucose Normal mg/dL (Normal) Other Laboratory Tests 07/05/24 06:00 07/04/24 05:32 Brief Hx & Hospital Course: This is a 68-year-old female with history of arthritis, asthma, hyperlipidemia who presents to ED via EMS due to complaints of dizziness associated with chest pain and mild disorientation that occurred today. The patient denies having similar symptoms in the past. The patient blood pressure noted to be 197/108, has never been diagnosed with hypertension. When speaking with the patient, she comments on increased stressors in her life that may be contributing to her symptoms. She denies recent injury or trauma to her head. She states that she started having hot flash then pain in the back of her head with notable palpitation and felt that her blood pressure was rising ending with brain fog. The patient is concerned about her symptoms and would like to be further evaluated and treated. The patient will be admitted under hospitalist care to the telemetry unit for continuous monitoring. The patient denies fever, chills, headache, dizziness, palpitation, chest pain, nausea, vomiting, abdominal pain, diarrhea, constipation and other associated symptoms. CT head negative for acute intracranial hemorrhage or infarction. Mild small vessel ischemic/degenerative changes. Carotid Doppler- No hemodynamically significant carotid artery stenosis identified bilaterally. ECHO 2D revealed LVEF 70%, LVH. Mild LV diastolic dysfunction, RVSP 30 mm of mercury. Hospital course-This is a 68-year-old female with history of arthritis, asthma, hyperlipidemia who presents to ED via EMS due to complaints of dizziness associated with chest pain and mild disorientation that occurred today. The patient denies having similar symptoms in the past. The patient blood pressure noted to be 197/108, has never been diagnosed with hypertension. When speaking with the patient, she comments on increased stressors in her life that may be contributing to her symptoms. She denies recent injury or trauma to her head. She states that she started having hot flash then pain in the back of her head with notable palpitation and felt that her blood pressure was rising ending with brain fog. The patient is concerned about her symptoms and would like to be further evaluated and treated. The patient will be admitted under hospitalist care to the telemetry unit for continuous monitoring. The patient denies fever, chills, headache, dizziness, palpitation, chest pain, nausea, vomiting, abdominal pain, diarrhea, constipation and other associated symptoms. CT head negative for acute intracranial hemorrhage or infarction. Mild small vessel ischemic/degenerative changes. Carotid Doppler- No hemodynamically significant carotid artery stenosis identified bilaterally. ECHO 2D revealed LVEF 70%, LVH. Mild LV diastolic dysfunction, RVSP 30 mm of mercury. Patient was treated conservatively. Patient's symptoms improved gradually. Patient is able to tolerate oral diet. Patient denied any chest pain or shortness of breath or dizziness this morning. Patient is being discharged home with amlodipine 5 mg p.o. daily. Patient was advised to follow up with the primary care physician in 1 week. Patient's meds were sent to the pharmacy electronically. Patient was hemodynamically stable on discharge. Assessment Hypertensive urgency Dizziness, headache likely due to hypertensive urgency Hypertensive cardiomyopathy Chest pain and shortness of breaths likely due to hypertensive urgency Asthma, no acute exacerbation Hyperlipidemia Obesity Plan Amlodipine 5 mg p.o. daily Resume other home medications Please follow up with the primary care physician in 1 week Operations or Procedures [place] [address] Ph: [phone] DIAGNOSTIC IMAGING Diagnostic Imaging Report : [id number] Signed PATIENT: RICK FREEMAN ACCT: [id number] UNIT: [id number] : 1955 LOC: ER ROOM / BED: / AGE / SEX: 68 / F ADM STATUS: REG ER SERVICE 1427 ORDERING PHYSICIAN: DAPHNE SERRANO MD PROCEDURE(s): HWOCT - HEAD WITHOUT CONTRAST REASON: tia ORDER NUMBER(s): [id number], ACCESSION NUMBER(s): [id number] EXAM: CT Head Without Intravenous Contrast CLINICAL INDICATION: tia TECHNIQUE: Axial computed tomography images of the head/brain without intravenous contrast. This CT exam was performed using one or more of the following dose reduction techniques: automated exposure control, adjustment of the mA and/or kV according to patient size, and/or use of iterative reconstruction technique. CONTRAST: COMPARISON: None FINDINGS: BRAIN AND EXTRA-AXIAL SPACES: The cerebral and cerebellar sulci are mildly prominent consistent with mild brain atrophy. No acute intracranial hemorrhage, midline shift or mass effect. If symptoms persist, further evaluation with MRI is recommended. Mild areas of decreased attenuation in the deep cerebral white matter are consistent with mild small vessel ischemic/degenerative changes. BONES/JOINTS: Unremarkable. No acute fracture. SOFT TISSUES: Unremarkable. SINUSES: Unremarkable as visualized. No acute sinusitis. MASTOID AIR CELLS: Unremarkable as visualized. No mastoid effusion. OTHER FINDINGS: . . . . IMPRESSION: 1. No acute intracranial hemorrhage, midline shift or mass effect. If symptoms persist, further evaluation with MRI is recommended. 2. Mild small vessel ischemic/degenerative changes. ATED BY: KIANA TAVARES MD DICTATED DATE/TIME: 07/03/241457 SIGNED BY: KIANA TAVARES MD SIGNED DATE/TIME: 07/03/241457 CC: [address] [id number] Ph: [phone] DIAGNOSTIC IMAGING Diagnostic Imaging Report : [id number] Signed PATIENT: RICK FREEMAN ACCT: [id number] UNIT: [id number] : 1955 LOC: OVERFLOW ROOM / BED: [id number] / A AGE / SEX: 68 / F ADM STATUS: ADM IN SERVICE 1000 ORDERING PHYSICIAN: MARII DIALLO ASSOCIATE SOFTWARE DEVELOPMENT ENGINEER PROCEDURE(s): CARCL - CAROTID DUPLX W COLOR DOP REASON: Dizziness ORDER NUMBER(s): [id number], ACCESSION NUMBER(s): [id number] PROCEDURE: US CAROTID DUPLX W COLOR DOP 07/04/2024 10:09 AM INDICATION: Dizziness COMPARISON: None TECHNIQUE: Real-time grayscale and color Doppler images of the neck arteries were obtained with spectral analysis performed. FINDINGS: RIGHT: No significant atherosclerotic plaque identified in the carotid. Normal spectral waveforms are seen. ICA peak systolic velocity: 114 cm/s ICA end- diastolic velocity: 42 cm/s ICA/CCA ratios: 1.2 LEFT: No significant atherosclerotic plaque identified in the carotid. Normal spectral waveforms are seen. ICA peak systolic velocity: 133 cm/s ICA end- diastolic velocity: 48 cm/s ICA/CCA ratios: 1.4 VERTEBRAL ARTERIES: Normal antegrade flow is seen bilaterally. Normal spectral waveforms. IMPRESSION: 1. No hemodynamically significant carotid artery stenosis identified bilaterally. Reference: Radiology 2003; 229:340-346 Normal ICA PSV is <125 cm/sec and no plaque or intimal thickening is visible sonographically additional criteria include ICA/CCA PSV ratio <2.0 and ICA EDV <40 cm/sec <50% ICA stenosis ICA PSV is <125 cm/sec and plaque or intimal thickening is visible sonographically additional criteria include ICA/CCA PSV ratio <2.0 and ICA EDV <40 cm/sec 50-69% ICA stenosis ICA PSV is 125-230 cm/sec and plaque is visible sonographically additional criteria include ICA/CCA PSV ratio of 2.0-4.0 and ICA EDV of 40-100 cm/sec 70% ICA stenosis but less than near occlusion ICA PSV is >230 cm/sec and visible plaque and luminal narrowing are seen at fine-scale and color Doppler ultrasound (the higher the Doppler parameters lie above the threshold of 230 cm/sec, the greater the likelihood of severe disease) additional criteria include ICA/CCA PSV ratio >4 and ICA EDV >100 cm/sec ATED BY: NURIS WATERMAN MD DICTATED DATE/TIME: 07/04/24 1106 SIGNED BY: NURIS WATERMAN MD SIGNED DATE/TIME: 07/04/24 1106 CC: [place] [address] Ph: [phone] DIAGNOSTIC IMAGING Diagnostic Imaging Report : [id number] Signed PATIENT: RICK FREEMAN ACCT: [id number] UNIT: [id number] : 1955 LOC: OVERFLOW ROOM / BED: [address] [place] [address] AGE / SEX: 68 / F ADM STATUS: ADM IN SERVICE 26 ORDERING PHYSICIAN: MARII DIALLO PROCEDURE(s): ECIDC - ECHO 2D MODE CARDIAC DOP REASON: Dizziness ORDER NUMBER(s): [id number], ACCESSION NUMBER(s): [id number] APPROVED REPORT EXAM: Two-dimensional and M-mode echocardiogram with Doppler and color Doppler. Blood Pressure: 132/68 mmHg INDICATION Dizziness RISK FACTORS Height: 5'3", Weight: 167 DIMENSIONS LVDd 4.3 (3.8-5.7cm) LA (2D) 3.8 (1.9-4.0cm) Aortic Root 3.3 (2.0- 3.7cm) LVDs 2.8 (2.5-4.0cm) LA (MM) (1.9-4.0cm) Aortic Cusp Exc 1.7 (1.5- 2.0cm) EF (%) 65.0 (55-70%) Rt. Atrium 3.2 (1.9-4.0cm) Asc. Aorta cm IVSd 0.8 (0.7-1.1cm) RV (D) (1.8-2.4cm) PWd 0.9 (0.7-1.1cm) Mitral Valve Mitral Mitral Stenosis E wave 0.92m/s MV Mean GR. mmHg A wave 0.82m/s MV Peak GR. mmHg E/A ratio 1.1 2D MVA cm2 DECEL Time 176ms PRESS 1/2 Time ms Aortic Valve Aortic Valve Aortic Stenosis V1 0.97m/s AO Mean GR. 5mmHg V2 1.49m/s AO Peak GR. 9mmHg LVOT Diameter 2.0 (1.8-2.4cm) Doppler PADMA 2.04cm2 Pulmonic Valve V2 0.77m/s Tricuspid Valve TR Velocity 2.59m/s RVSP 30mmHg Conclusion MILD LVH AND MILD LV DIASTOLIC DYSFUNCTION LV EF IS 70% AND IS NORMAL NORMAL VALVES NORMAL RV FUNCTION AND SIZE RVSP IS 30 MM OF HG AND IS NORMAL NO EFFUSION SIGNED BY: LUMA CARR MD SIGNED DATE/TIME: 07/04/24 1404 CC: Condition at Discharge: Stable Final Diagnosis/Problems List Hypertensive urgency Dizziness, headache likely due to hypertensive urgency Hypertensive cardiomyopathy Chest pain and shortness of breaths likely due to hypertensive urgency Asthma, no acute exacerbation Hyperlipidemia Obesity Discharge Disposition: Home Discharge Instruct/Medications Diet: Cardiac 2g Na,low cholest Activity: No Restrictions, As Tolerated Follow Up/Referral: Please follow up with the primary care physician in 1 Medications: AMLODIPINE 5 MG PO QD Please resume other home medication Discharge Statement: "Patient was advised to return to the ER or call 911 if any headaches, dizziness, shortness of breath, chest pain, abdominal pain, bleeding, fevers, or worsening of medical condition. Patient was counseled about treatment plan, medications, possible side effects, patientverbalized understanding. All questions were answered to the best of my ability. This discharge took greater then 30 minutes in planning, reviewing documentation, counseling the patient, and discussing with other team members." ASSESSMENT ASSESSMENT Assessment Hypertensive urgency Intractable nausea and vomiting, unable to tolerate oral diet Dizziness, headache likely due to hypertensive urgency Hypertensive cardiomyopathy Chest pain and shortness of breaths likely due to hypertensive urgency Asthma, no acute exacerbation Hyperlipidemia Obesity Date of Service: Jul 05, 2024 Billing Provider: KIERA MARIA MD Common Visit Codes: [id number]/OBS DISCH DAY >30min ERNESTO MUNOZ RESIDENT Jul 05, 2024 17:42 KIERA MARIA MD Jul 07, 2024 01:08
== END 2024-07-05 17:00 | disposition home or self-care (01) | DRG 305 ==
LOC: ER 14:03 → EDBD 14:03 → OVERFLOW 19:27 → TELE-WESTW 07-04 15:18
PROVIDERS: ADMIT Student in an Organized Health Care Education/Training Program; ATTEND Student in an Organized Health Care Education/Training Program
DX: I16.0 Hypertensive urgency (principal); G45.9 Transient cerebral ischemic attack, unspecified; I43 Cardiomyopathy in diseases classified elsewhere; J45.909 Unspecified asthma, uncomplicated; K59.00 Constipation, unspecified; E78.5 Hyperlipidemia, unspecified; G90.89 Other disorders of autonomic nervous system; I11.9 Hypertensive heart disease without heart failure; E66.9 Obesity, unspecified; Z68.30 Body mass index [BMI] 30.0-30.9, adult; Z98.51 Tubal ligation status; Z79.899 Other long term (current) drug therapy
CPT/HCPCS: 36415; 70450; 80048; 80053; 81001; 83036; 83735; 84443; 84484; 85025; 93005; 93306; 93886; 94640; 97163; G0378

== ENCOUNTER 2024-07-15 15:48 | Inpatient (IN) | payer MEDICARE, OTHER ==
[~2024-07-15] VITALS: Ht 160 cm; Wt 80.4 kg
[~2024-07-15 15:48] MED LIST changes: +AMLO1TAB22 PO
--- NOTE | 2024-07-15 16:05 | ECG ---
[facility] Test Date: 2024-07-15 Test Time: 16:01:26 Pat Name: RICK FREEMAN Department: ER Room: [address] [place] [address] Gender: F Courtroom Deputy: TANYA : 1955 Requested By: ISHMAEL WASHBURN Order Number: [id number] Reading MD: Jf Melendez Measurements Intervals [place] Rate: 81 P: 69 MD: 165 QRS: 23 QRSD: 88 T: 34 QT: 369 QTc: 429 Interpretive Statements Sinus rhythm Baseline wander in lead(s) I,II,aVR Electronically Signed On 07-16-2024 9:20:50 PDT by Jf Melendez Please click the below link to view image of tracing.
--- NOTE | 2024-07-15 16:15 | ED.PDOC ---
History of Present Illness HPI Comments 69 y/o F, with PMHx of TIA, HTN, HLD, arthritis, and asthma presents to the ED for CC of left sided numbness. Patient states, that she has been experiencing left-sided numbness with associated symptoms of headache, dizziness, and disorientation x1day. Patient relays, that she was previously hospitalized at [facility] for Dx:TIA and is unsure if symptoms are related. Patient denies blurred vision, chest pain, shortness of breath, nausea, or vomiting. No other symptoms or modifying factors present at this time. Time Seen by MD: 16:00 Primary Care Provider: ODILIA Reviewed Notes: Nurses Notes, Medications, Allergies Allergies: Coded Allergies: NO KNOWN ALLERGIES (Unverified , 12/18/23) Home Meds Active Scripts Amlodipine Besylate (Amlodipine Besylate) 5 Mg Tab, 1 TAB PO DAILY for 60 Days, #60 TAB Prov:ERNESTO MUNOZ RESIDENT 07/05/24 Acetaminophen W/ Codeine (Tylenol W/Cod #3) 1 Tab Tb, 1 TAB PO Q6HPRN, #10 TAB 0 Refills Prov:CALVIN CHAKRABORTY 12/24/23 Sulfamethoxazole W/Trimethopri (Bactrim Ds Tablet) 1 Tab Tb, 1 TAB PO BID for 7 Days, #14 TAB 0 Refills Prov:CALVIN CHAKRABORTY 12/24/23 Cyclobenzaprine Hcl (Cyclobenzaprine Hcl) 5 Mg Tab, 1 TAB PO QHSP, #14 TAB 0 Refills Prov:CALVIN CHAKRABORTY 12/24/23 Methylprednisolone (Medrol Dosepak) 4 Mg Luis Manuel, 4 MG PO UD for 6 Days, #21 TAB UAD Prov:ERIN LONDON ARMORING MACHINE OPERATOR 12/18/23 Information Source: Patient Mode of Arrival: Ambulatory Severity: Moderate Timing: Days Duration: Since onset Prehospital treatment: None Past Medical History PAST MEDICAL HISTORY: Arthritis, Asthma, High Lipids, HTN, TIA Surgical History: Tubal Ligation Family History Family History: Unknown Social History Smoker: Non-Smoker Alcohol: Occasionally Drugs: Denies Drug Use Lives In: Home Constitutional: denies: chills, diaphoresis, fatigue, fever, malaise, sweats, weakness, others EENTM: denies: blurred vision, double vision, ear bleeding, ear discharge, ear drainage, ear pain, ear ringing, eye pain, eye redness, hearing loss, mouth pain, mouth swelling, nasal discharge, nose bleeding, nose congestion, nose pain, photophobia, tearing, throat pain, throat swelling, voice changes, others Respiratory: denies: cough, hemoptysis, orthopnea, SOB at rest, shortness of breath, SOB with excertion, stridor, wheezing, others Cardiovascular: denies: chest pain, dizzy spells, diaphoresis, Dyspnea on exertion, edema, irregular heart beat, left arm pain, lightheadedness, palpitations, PND, syncope, others Gastrointestinal: denies: abdomen distended, abdominal pain, blood streaked bowels, constipated, diarrhea, dysphagia, difficulty swallowing, hematemesis, melena, nausea, poor appetite, poor fluid intake, rectal bleeding, rectal pain, vomiting, others Genitourinary: denies: abnormal vagina bleeding, burning, dyspareunia, dysuria, flank pain, frequency, hematuria, incontinence, pain, , vagina discharge, urgency, others Neurological: reports: dizziness, left sided numbness, left sided weakness; denies: fainting, headache, numbness, paresthesia, pre-existing deficit, right sided numbness, right sided weakness, seizure, speech problems, tingling, tremors, weakness, others Musculoskeletal: denies: back pain, gout, joint pain, joint swelling, muscle pain, muscle stiffness, neck pain, others Integumetry: denies: bruises, change in color, change in hair/nails, dryness, laceration, lesions, lumps, rash, wounds, others Allergic/Immunocompromised: denies: Difficulty Healing, Frequent Infections, Hives, Itching, others Hematologic/Lymphatic: denies: anemia, blood clots, easy bleeding, easy bruising, swollen glands, others Endocrine: denies: excessive hunger, excessive sweating, excessive thirst, excessive urination, flushing, intolerance to cold, intolerance to heat, unexplained weight gain, unexplained weight loss, others Psychiatric: denies: anxiety, bipolar disorder, depression, hopeless, panic disorder, schizophrenia, sleepless, suicidal, others All Other Systems: Reviewed and Negative Physical Exam General Appearance: Mild Distress HEENT: Normal ENT Inspection, Pharynx Normal, TMs Normal Neck: Full Range of Motion, Non-Tender, Normal, Normal Inspection Respiratory: Chest Non-Tender, Lungs Clear, No Accessory Muscle Use, No Respiratory Distress, Normal Breath Sounds Cardiovascular: No Edema, No JVD, No Murmur, No Gallop, Normal Peripheral Pulses, Regular Rate/Rhythm Breast Exam: Deferred Gastrointestinal: No Organomegaly, Non Tender, No Pulsatile Mass, Normal Bowel Sounds, Soft Genitalia: Deferred Pelvic: Deferred Rectal: Deferred Extremities: No calf tenderness, Normal capillary refill, No pedal edema Musculoskeletal : Apperance: Normal Neurologic: Alert, glazier supervisor II-XII nml as Tested, No Motor Deficits, Normal Affect, Normal Mood, No Sensory Deficits Cerebellar Function: Normal Reflexes: Normal Skin: Dry, Normal Color, Warm Lymphatic: No Adenopathy Was a procedure done? Was a procedure done?: No EKG EKG : Pulse Rate (adult): 81 [place]: Normal Cardiac Rhythm: NSR Block: None Hypertrophy: None ST: Normal Differential Dx Considerations may include: STROKE, TIA X-Ray, Labs, Meds, VS Vital Signs Date Time Temp Pulse Resp B/P (MAP) Pulse Ox O2 Delivery O2 Flow Rate FiO2 07/15/24 17:50 78 16 96 Room Air* 0 21 07/15/24 17:50 98.1 78 16 139/88 (105) 96 98.1 07/15/24 16:54 98.4 79 18 132/91 (105) 97 98.4 07/15/24 16:15 81 07/15/24 16:01 81 Lab Test 07/15/24 16:41 07/15/24 16:10 Range/Units White Blood Count 5.3 4.4-10.8 10^3/uL Red Blood Count 4.48 4.0-5.20 10^6/uL Hemoglobin 13.5 12.2-16.2 g/dL Hematocrit 39.6 36.0-46.0 % Mean Corpuscular Volume 88.5 80.0-100.0 fL Mean Corpuscular Hemoglobin 30.1 28.0-32.0 pg Mean Corpuscular Hemoglobin Concent 34.0 32.0-36.0 g/dL Red Cell Distribution Width 12.9 11.8-14.3 % Platelet Count 219 140-450 10^3/uL Mean Platelet Volume 7.7 6.9-10.8 fL Neutrophils (%) (Auto) 65.2 37.0-80.0 % Lymphocytes (%) (Auto) 26.0 10.0-50.0 % Monocytes (%) (Auto) 7.0 0.0-12.0 % Eosinophils (%) (Auto) 1.4 0.0-7.0 % Basophils (%) (Auto) 0.4 0.0-2.0 % Neutrophils # (Auto) 3.5 1.6-8.6 10 ^3/uL Lymphocytes # (Auto) 1.4 0.4-5.4 10 ^3/uL Monocytes # (Auto) 0.4 0-1.3 10 ^3/uL Eosinophils # (Auto) 0.1 0-0.8 10 ^3/uL Basophils # (Auto) 0 0-0.2 10 ^3/uL Nucleated Red Blood Cells 0.1 % Sodium Level 143 136-145 mmol/L Potassium Level 3.9 3.5-5.1 mmol/L Chloride Level 104 98-107 mmol/L Carbon Dioxide Level 31 20-31 mmol/L Anion Gap 8 5-15 Blood Urea Nitrogen 10 9-23 mg/dL Creatinine 0.78 0.550-1.02 mg/dL Glomerular Filtration Rate Calc 83 >90 mL/min BUN/Creatinine Ratio 12.8 10.0-20.0 Serum Glucose 100 74-106 mg/dL Calcium Level 10.5 H 8.7-10.4 mg/dL POC Glucose 90 70-106 mg/dl HEAD CT: IMPRESSION: 1. No acute intracranial process. The patient's CBC and chemistry panel are within normal limits The patient will be admitted to the hospitalist at this time A neurology consult has been obtained. IV Hep-Lock is being established Images Reviewed?: Images reviewed and evaluated by me Time of 1ST Reevaluation: 16:30 Reevaluation 1ST: Unchanged Patient Education/Counseling: Diagnosis, Treatment, Prognosis Family Education/Counseling: No Family Present Departure 1 Departure Time of Disposition: 17:59 Impression: Primary Impression: Left facial numbness Additional Impressions: Generalized weakness Cephalgia Qualified Codes: R51.9 - Headache, unspecified Disposition: 09 ADMITTED INPATIENT Admit to: Tele Condition: Fair Critical Care Note Critical Care Time?: Yes (35 min-critical care time only) Stability Stability form required: Yes Unstable for transfer: Telemetry monitoring (Telemetry monitoring required), ED Physician Assesment (Clinical assesment) Heart Score Heart Score: Heart Score Response (Comments) Value History N/A 0 EKG N/A 0 Age N/A 0 Risk Factors N/A 0 Troponin N/A 0 Total 0 I personally scribed for ISHMAEL WASHBURN MD ([email or web address]) on 07/15/24 at 16:15. Electronically submitted by Rama Rodgers ([email or web address]). I personally scribed for ISHMAEL WASHBURN MD ([email or web address]) on 07/15/24 at 16:21. Electronically submitted by Rama Rodgers ([email or web address]). I personally scribed for ISHMAEL WASHBURN MD ([email or web address]) on 07/15/24 at 17:14. Electronically submitted by Rama Rodgers ([email or web address]). I personally scribed for ISHMAEL WASHBURN MD ([email or web address]) on 07/15/24 at 17:15. Electronically submitted by Rama Rodgers ([email or web address]). I personally scribed for ISHMAEL WASHBURN MD ([email or web address]) on 07/15/24 at 17:15. Electronically submitted by Rama Rodgers ([email or web address]). ISHMAEL WASHBURN MD July 15, 2024 16:15
--- NOTE | 2024-07-15 16:35 | DVH ---
EXAM: CT HEAD WITHOUT CONTRAST; DATE: 07/15/2024 04:09 PM HISTORY: Left facial numbness COMPARISON: CT HEAD WITHOUT CONTRAST on DOS: 07/03/24 TECHNIQUE: Axial images were obtained and reformatted in coronal and sagittal planes. All CT scans at this medical facility are performed using dose modulation techniques as appropriate t o a performed exam including the following: Automated exposure control was utilized; adjustment of th e MA and/or KV according to patient size; and use of iterative reconstruction technique. CT Dose: CTDI volume is 54 mGy. Dose-length product is 869 mGy*cm FINDINGS: Supratentorial Region: No evidence for large acute territorial ischemia. No intracranial hemorrhage is noted. Posterior Fossa: No acute abnormality. Brainstem: Unremarkable. Sellar/Suprasellar Region: Unremarkable. Ventricles, Cisterns, Sulci: Age-appropriate. Orbits: Unremarkable. Paranasal Sinuses: Unremarkable. Mastoid Air Cells: A large mucous retention cyst in the right maxillary sinus noted. Vasculature: Unremarkable. Bones/Soft Tissues: No acute abnormality. Other: None. IMPRESSION: 1. No acute intracranial process.
[2024-07-15 16:56] LABS: Basophils # (auto) 0 10 ^3/uL (0-0.2); Basophils % (auto) 0.4 % (0.0-2.0); Eosinophils # (auto) 0.1 10 ^3/uL (0-0.8); Eosinophils % (auto) 1.4 % (0.0-7.0); Hematocrit 39.6 % (36.0-46.0); Hemoglobin 13.5 g/dL (12.2-16.2); Lymphocytes # (auto) 1.4 10 ^3/uL (0.4-5.4); Mean Corpuscular Hemoglobin 30.1 pg (28.0-32.0); Mean Corpuscular Volume 88.5 fL (80.0-100.0); Monocytes # (auto) 0.4 10 ^3/uL (0-1.3); Neutrophils # (auto) 3.5 10 ^3/uL (1.6-8.6); Neutrophils % (auto) 65.2 % (37.0-80.0); Nucleated Red Blood Cells % 0.1 %; Platelet Count (auto) 219 10^3/uL (140-450); Red Blood Cells 4.48 10^6/uL (4.0-5.20); Red Cell Distribution Width 12.9 % (11.8-14.3); White Blood Cell 5.3 10^3/uL (4.4-10.8)
[2024-07-15 17:08] LABS: Chloride 104 mmol/L (98-107); Potassium 3.9 mmol/L (3.5-5.1); Sodium 143 mmol/L (136-145)
[2024-07-15 17:09] LABS: Anion Gap 8 (5-15); Carbon Dioxide 31 mmol/L (20-31)
[2024-07-15 17:14] LABS: Glucose 100 mg/dL (74-106)
[2024-07-15 17:15] LABS: BUN/Creatinine Ratio 12.8 (10.0-20.0); Blood Urea Nitrogen 10 mg/dL (9-23)
[2024-07-15 17:16] LABS: Calcium 10.5 mg/dL (8.7-10.4)
[2024-07-15 17:50] VITALS: PULSE 78; RESP 16; O2SAT 96
[2024-07-15] MEDS: ACETAMINOPHEN 325 MG TAB PO ONE (19:04)
[2024-07-15] MEDS ORDERED: DOCUSATE SOD 100 MG CAP PO PRN (23:30)
[2024-07-15] MEDS ORDERED: ONDANSETRON HCL 4 MG/2 ML VIAL IV PRN (23:30)
--- NOTE | 2024-07-15 23:38 | DVHHPRES ---
History of Present Illness Resident Creating Document: JENNIFER GAMBLE RESIDENT History of Present Illness Patient is a 69-year-old female with past medical history of hypertension, dyslipidemia, arthritis, asthma, who comes in due to presyncope, headache and hypertension. According to the patient, she has these distinct episodes that come out of no where where she started experiencing a headache, dizziness, eye pressure, tinnitus, shaking sensation and numbness in the left side of her face. 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 she had similar episode, when she checked her blood pressure was noted to be 180/92 despite being adherent with home antihypertensives. Per patient, the episode resolved over the next couple hours in when she rechecked her blood pressure around bedtime it was 135/90. Patient was recently discharged from the [facility] on 07/05/2024 after being treated for hypertensive urgency. In the ER head CT was done which was largely unremarkable. On review of systems patient is complaining of fatigue, chills, palpitations, nausea and anxiety. Patient she was unable to complete an MRI and a neurologic consultation during previous hospitalization which is what she would like this time. Patient will be admitted for further management. Past Medical History hypertension, dyslipidemia, arthritis, asthma Past Surgical History Full tunnel repair surgery, tubal ligation, tummy tuck Family History Father: Multiple myeloma Mother: Lung cancer Past Social History Smoking: Quit 35 years ago, prior to that was smoking 1 pack per day for 15 years Alcohol: Occasionally, last drink on Friday Drugs: Denies Allergy: Denies Review of Systems Constitutional: Yes: Chills, Malaise; No: Fever, Sweats, Weakness, Other Eyes: No: Pain, Vision change, Conjunctivae inflammation, Eyelid inflammation, Other, Redness ENT: No: Ear pain, Ear discharge, Nose pain, Nose discharge, Nose congestion, Mouth pain, Mouth swelling, Throat pain, Throat swelling, Other Respiratory: No: Cough, Dry, Shortness of breath, SOB with excertion, Wheezing, Hemoptysis, Pleuritic Pain, Sputum, Wheezing, Other Cardiovascular: Palpitations; No: Chest Pain, Orthopnea, Paroxysmal Noc. Dyspnea, Edema, Lt Headedness, Other Gastrointestinal: Nausea; No: Vomiting, Abdominal Pain, Diarrhea, Constipation, Melena, Hematochezia, Other Genitourinary: No Dysuria, No Frequency, No Incontinence, No Hematuria, No Retention, No Other Musculoskeletal: No: other, neck pain, shoulder pain, arm pain, back pain, hand pain, leg pain, foot pain Skin: No: Rash, Lesions, Jaundice, Bruising, Other Neurological: No: Weakness, Numbness, Incoordination, Change in speech, Confusion, Seizures, Other Allergies: Coded Allergies: NO KNOWN ALLERGIES (Unverified , 12/18/23) Exam Vital Signs Vital Signs Date Time Temp Pulse Resp B/P (MAP) Pulse Ox O2 Delivery O2 Flow Rate FiO2 07/15/24 17:50 78 16 96 Room Air* 0 21 07/15/24 17:50 98.1 139/88 (105) 98.1 Exam Brief neurologic exam was performed for the patient, no muscle weakness, no sensory deficits noted. No weakness of muscles of facial expression. General Appearance: Alert, Oriented X3, Cooperative, No acute distress HEENT: Atraumatic, PERRLA, EOMI, Mucous membr. moist/pink Respiratory: Clear to auscultation, Normal air movement Cardiovascular: Regular rate, Normal S1, Normal S2, No murmurs Abdominal: Normal bowel sounds, Soft, No tenderness Extremities: No edema Skin: No significant lesion Neuro: Normal gait, Normal speech, Strength at 5/5 X4 ext, Normal tone, Sensation intact, Cranial nerves 3-12 NL Psych/Mental Status: Mental status NL, Mood NL Labs/Xrays Labs Test 07/15/24 16:41 07/15/24 16:10 Range/Units White Blood Count 5.3 4.4-10.8 10^3/uL Red Blood Count 4.48 4.0-5.20 10^6/uL Hemoglobin 13.5 12.2-16.2 g/dL Hematocrit 39.6 36.0-46.0 % Mean Corpuscular Volume 88.5 80.0-100.0 fL Mean Corpuscular Hemoglobin 30.1 28.0-32.0 pg Mean Corpuscular Hemoglobin Concent 34.0 32.0-36.0 g/dL Red Cell Distribution Width 12.9 11.8-14.3 % Platelet Count 219 140-450 10^3/uL Mean Platelet Volume 7.7 6.9-10.8 fL Neutrophils (%) (Auto) 65.2 37.0-80.0 % Lymphocytes (%) (Auto) 26.0 10.0-50.0 % Monocytes (%) (Auto) 7.0 0.0-12.0 % Eosinophils (%) (Auto) 1.4 0.0-7.0 % Basophils (%) (Auto) 0.4 0.0-2.0 % Neutrophils # (Auto) 3.5 1.6-8.6 10 ^3/uL Lymphocytes # (Auto) 1.4 0.4-5.4 10 ^3/uL Monocytes # (Auto) 0.4 0-1.3 10 ^3/uL Eosinophils # (Auto) 0.1 0-0.8 10 ^3/uL Basophils # (Auto) 0 0-0.2 10 ^3/uL Nucleated Red Blood Cells 0.1 % Sodium Level 143 136-145 mmol/L Potassium Level 3.9 3.5-5.1 mmol/L Chloride Level 104 98-107 mmol/L Carbon Dioxide Level 31 20-31 mmol/L Anion Gap 8 5-15 Blood Urea Nitrogen 10 9-23 mg/dL Creatinine 0.78 0.550-1.02 mg/dL Glomerular Filtration Rate Calc 83 >90 mL/min BUN/Creatinine Ratio 12.8 10.0-20.0 Serum Glucose 100 74-106 mg/dL Calcium Level 10.5 H 8.7-10.4 mg/dL POC Glucose 90 70-106 mg/dl Assessment/Plan Assessment/Plan Presyncope possibly due to cardiac causes versus neuro causes vs anxiety Headache possibly due to Idiopathic intracranial hypertension versus migraine versus stress headache Generalized weakness Accelerated hypertension Hypertensive heart disease with LVH and left ventricular diastolic dysfunction Rule out pheochromocytoma - head CT: No acute intracranial process. - carotid Doppler from 07/04/2024 showed no hemodynamically significant carotid artery stenosis bilaterally - IV NS 500 cc bolus - ordered CT abdomen pelvis with IV contrast - ordered plasma metanephrine - acetaminophen as needed for pain - resumed home medication amlodipine History of asthma, currently stable - monitor DVT prophylaxis: Levonox 40mg Goals of care: Full code, discussed for >16 minutes on 07/16/2019 Plan discussed with patient Plan discussed with Dr. Gomez Plan discussed with: Patient, Other (RN) My Orders Orders - JENNIFER GAMBLE RESIDENT Procedure Category Date Status Time Admit ADMIT 07/15/24 Transmitted 23:30 Allergies TRUDY 07/15/24 Transmitted 23:30 Code Status CODE 07/15/24 Transmitted 23:30 Acetaminophen Tablet PHA 07/15/24 Transmitted (Tylenol Tablet) 23:30 Ondansetron Hcl PHA 07/15/24 Transmitted (Zofran) 23:30 Docusate Sodium PHA 07/15/24 Transmitted Capsule (Colace 23:30 Enoxaparin Sodium PHA 07/16/24 Transmitted (Lovenox) 10:00 Complete Blood Count LAB 07/16/24 Verified 04:00 Comprehensive LAB 07/16/24 Verified Metabolic Panel 04:00 Cardiac DIET 07/16/24 Transmitted Diet-2gna,Lofat,Lochol Breakfast Condition: Unstable TRUDY 07/15/24 Transmitted 23:30 Notify Of Changes TRUDY 07/15/24 Transmitted From Base 23:30 Covid19 Antigen Ritu LAB 07/15/24 Transmitted Rapid Influenza A&B LAB 07/15/24 Transmitted 23:30 Metanephrines Frac LAB 07/15/24 Transmitted Free Plasma 23:30 Hepatic Panel LAB 07/15/24 Transmitted 23:30 Urinalysis LAB 07/15/24 Transmitted 23:30 Drug Screen LAB 07/15/24 Transmitted 23:30 NS PHA 07/15/24 Transmitted 23:30 Ct Ab Pel With Iv Con CT 07/15/24 Transmitted Only 23:30 Date of Service: July 15, 2024 Billing Provider: GWENDOLYN GOMEZ MD Common Visit Codes: [id number] INP/OBS CARE (HIGH) JENNIFER GAMBLE RESIDENT July 15, 2024 23:38
[2024-07-16] VITALS (7 sets, daily range): BP systolic 108–139; BP diastolic 67–88; PULSE 59–80; RESP 15–20; TEMP 97.6–98.6; O2SAT 94–98
[2024-07-16 01:35] LABS: Bilirubin, Direct 0.2 mg/dL (<0.3); Total Protein 7.6 g/dL (5.7-8.2)
[2024-07-16 01:36] LABS: Bilirubin, Total 0.6 mg/dL (0.2-1.0)
--- NOTE | 2024-07-16 01:53 | DVH ---
CLINICAL HISTORY: adrenal mass pheo TECHNIQUE: CT of the abdomen and pelvis was performed with intravenous contrast. 100 mL Omnipaque 300 injected This exam was performed according to our departmental dose optimization program. Up-to-date CT equipment and radiation dose reduction techniques are utilized as appropriate. CTDIVol: 13.33 mGy DLP: 762.41 mGy-cm WID: COMPARISON: None FINDINGS: Lower Thorax: Unremarkable Liver and Biliary system: Mild dilatation of the common bile duct measuring 9.7 mm on coronal image 4 3, though tapers distally. No intrahepatic bile duct dilatation. Unremarkable liver. Gallbladder is normal caliber. Spleen: Unremarkable. Adrenal Glands and Kidneys: Unremarkable. Pancreas and Retroperitoneum: Unremarkable. Aorta and Major Vessels: Aortoiliac vessels are patent and normal caliber. There is mild mixed athero sclerotic plaque in the abdominal aorta. Bowel, Mesentery and Peritoneal space: Normal caliber small and large bowel. Normal appendix. No mese nteric lymphadenopathy. No free air or fluid collection. Pelvis: A calcified fibroid in the anterior uterine body. There is mild bladder wall thickening altho ugh minimally distended. There is no pelvic lymphadenopathy. The ovaries are grossly normal apart fro m a small left ovarian postmenopausal cyst on series 2, image 72. Abdominal wall and Osseous Structures: Mild lower thoracic and lumbar spondylosis. No destructive oss eous lesion. IMPRESSION: 1. Normal adrenal glands. 2. No bowel obstruction, fluid collection, or free air. Normal appendix.
[2024-07-16 02:07] LABS: COVID19 ANTIGEN SOFIA FIA NEGATIVE (NEGATIVE); Rapid Influenza A Negative (Negative); Rapid Influenza B Negative (Negative)
[2024-07-16] MEDS: IOHEXOL 300 MG/ML 100ML BOTTLE IJ ONE (02:09)
[2024-07-16 02:52] LABS: Urine Bacteria FEW /hpf (None Seen); Urine Blood Negative /uL (Negative); Urine Clarity Clear (Clear); Urine Color Colorless (Yellow); Urine Protein, UAD Negative (Negative); Urine Squamous Epithelial Cell FEW /hpf (<5); Urine Urobilinogen Normal (Negative); Urine WBC 2 /HPF (0-5); Urine pH 6.5 (5.0-9.0)
[2024-07-16 03:40] LABS: Amphetamine Screen, Urine Neg (NEGATIVE); Barbiturate Scree,Urine Neg (NEGATIVE); Benzodiazephine Screen, Urine Neg (NEGATIVE); Cannabinoid Screen, Urine Neg (NEGATIVE); Cocaine Screen, Urine Neg (NEGATIVE); Opiate Scree,Urine Neg (NEGATIVE); Phencyclidine Screen, Urine Neg (NEGATIVE)
[2024-07-16 04:01] LABS: Basophils # (auto) 0 10 ^3/uL (0-0.2); Basophils % (auto) 0.4 % (0.0-2.0); Eosinophils # (auto) 0.2 10 ^3/uL (0-0.8); Eosinophils % (auto) 2.9 % (0.0-7.0); Hematocrit 37.3 % (36.0-46.0); Hemoglobin 12.6 g/dL (12.2-16.2); Lymphocytes # (auto) 1.8 10 ^3/uL (0.4-5.4); Lymphocytes % (auto) 34.5 % (10.0-50.0); Mean Corpuscular Hemoglobin 30.1 pg (28.0-32.0); Mean Corpuscular Hgb Conc. 33.7 g/dL (32.0-36.0); Mean Corpuscular Volume 89.2 fL (80.0-100.0); Monocytes # (auto) 0.4 10 ^3/uL (0-1.3); Monocytes % (auto) 8.4 % (0.0-12.0); Neutrophils # (auto) 2.8 10 ^3/uL (1.6-8.6); Neutrophils % (auto) 53.8 % (37.0-80.0); Platelet Count (auto) 213 10^3/uL (140-450); Red Blood Cells 4.18 10^6/uL (4.0-5.20); Red Cell Distribution Width 13.4 % (11.8-14.3); White Blood Cell 5.2 10^3/uL (4.4-10.8)
[2024-07-16 04:17] LABS: Albumin 4.7 g/dL (3.2-4.8); Alkaline Phosphatase 50 U/L (46-116); Anion Gap 6 (5-15); Aspartate Aminotransferase 20 U/L (13-40); BUN/Creatinine Ratio 12.5 (10.0-20.0); Bilirubin, Total 0.5 mg/dL (0.2-1.0); Blood Urea Nitrogen 10 mg/dL (9-23); Calcium 10.1 mg/dL (8.7-10.4); Carbon Dioxide 30 mmol/L (20-31); Chloride 104 mmol/L (98-107); Glucose 96 mg/dL (74-106); Potassium 3.5 mmol/L (3.5-5.1); Sodium 140 mmol/L (136-145)
[2024-07-16 04:20] LABS: Alanine Aminotransferase 45 U/L (7-40)
[2024-07-16] MEDS: SODIUM CHLORIDE 0.9% 500 ML IV ONE (06:18)
--- NOTE | 2024-07-16 08:11 | DVHPNRES ---
Progress Note Date Seen: July 16, 2024 Resident Creating Document: ERNESTO MUNOZ RESIDENT Has the PT tested + for MRSA If YES, has PT been informed?: No Medical Necessity Reason Pt with a Central, PICC or Fol: No Subjective Review of Systems Patient is a 69-year-old female with past medical history of hypertension, dyslipidemia, arthritis, asthma, who comes in due to presyncope, headache and hypertension. According to the patient, she has these distinct episodes that come out of no where where she started experiencing a headache, dizziness, eye pressure, tinnitus, shaking sensation and numbness in the left side of her face. 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 she had similar episode, when she checked her blood pressure was noted to be 180/92 despite being adherent with home antihypertensives. Per patient, the episode resolved over the next couple hours in when she rechecked her blood pressure around bedtime it was 135/90. Patient was recently discharged from the [facility] on 07/05/2024 after being treated for hypertensive urgency. In the ER head CT was done which was largely unremarkable. On review of systems patient is complaining of fatigue, chills, palpitations, nausea and anxiety. UDS negative. Urinalysis nonsignificant. Patient was negative for COVID and flu Patient she was unable to complete an MRI and a neurologic consultation during previous hospitalization which is what she would like this time. Patient will be admitted for further management. PMH-hypertension, dyslipidemia, arthritis, asthma PSH- Full tunnel repair surgery, tubal ligation, tummy tuck FH-Father: Multiple myeloma ,Mother: Lung cancer Allergy- Personal History/ Social History- Smoking: Quit 35 years ago, prior to that was smoking 1 pack per day for 15 years , Alcohol: Occasionally, last drink on Friday Patient was seen today at the bedside. Patient Cardiovascular- deny acute chest pain or shortness of breath or cough or palpitation Respiratory denies cough or short of breath or wheezing Gastrointestinal- denies any rectal bleeding, nausea or vomiting Musculoskeletal-denies acute joint swelling or tenderness or redness Neurological- denies acute dysarthria, dysphagia, change in vision Psychiatry- denies depression or SI or HI Skin- denies acute rash or purpura Patient was seen today for clinical evaluation. Labs and chart reviewed. Ordered MRI of the brain without contrast, orthostatic vitals within normal Objective vital signs Vital Sign Date Time Temp Pulse Resp B/P (MAP) Pulse Ox O2 Delivery O2 Flow Rate FiO2 07/16/24 05:00 98.1 59 15 121/74 (90) 98 98.1 07/15/24 17:50 Room Air* 0 21 medications Current Medications Medications Dose Ordered Sig/Froy Route Start Time Stop Time Status Last Admin Dose Admin Acetaminophen 325 mg Q4HP PRN PO 07/15/24 23:30 Ondansetron HCl 4 mg Q4HP PRN IV 07/15/24 23:30 Docusate Sodium 100 mg BIDPRN PRN PO 07/15/24 23:30 Enoxaparin Sodium 40 mg DAILY SC 07/16/24 10:00 Amlodipine Besylate 5 mg DAILY PO 07/16/24 10:00 Examination General examination- HEENT- PEERLA, no acute nasal discharge Cardiovascular- S1-S2 audible, rate and rhythm regular, no murmur Respiratory- CTAB, no wheeze or rhonchi Gastrointestinal-nontender, bowel sound+. Nondistended Musculoskeletal-no acute joint swelling or tenderness or redness Lower extremity- Neurological- cranial nerves intact, no acute dysarthria or dysphagia Psychiatry- denies depression or SI or HI Skin- no acute rash or purpura laboratory and microbiology Laboratory Tests 07/16/24 03:35 Test 07/16/24 03:35 Range/Units Serum Glucose 96 74-106 mg/dL Problem List/Assessment/Plan Problem List/Assessment/Plan Assessment Plan-patient was suspected TIA, CT head negative, ordered MRI of the brain for the further evaluation and care and also ordered neurology consult. Orthostatic vitals with a normal limit. Suspected TIA- Suspected presyncope possibly due to cardiac causes versus neuro causes vs anxiety Headache possibly due to Idiopathic intracranial hypertension versus migraine versus stress headache Generalized weakness Accelerated hypertension Hypertensive heart disease with LVH and left ventricular diastolic dysfunction Rule out pheochromocytoma - head CT: No acute intracranial process. ordered MRI of the brain - carotid Doppler from 07/04/2024 showed no hemodynamically significant carotid artery stenosis bilaterally - ordered CT abdomen pelvis with IV contrast -negative for any abdominal intracranial abnormality - ordered plasma metanephrine - acetaminophen as needed for pain - resumed home medication amlodipine Ordered Urology consult for further evaluation and care History of asthma, currently stable - monitor Anxiety Monitor clinically Goals of care, Code status ; discussed with >15 minutes PUD prophylaxis: Pantoprazole DVT prophylaxis: Lovenox Plan discussed with Dr. Cornelius , nursing staff, Total time spent on patient evaluation, chart review, assessment and plan, discussion discussion >35 minutes Plan discussed with: Patient, Other (RN) Date of Service: July 16, 2024 Billing Provider: KAT CORNELIUS DO Common Visit Codes: [id number] INP/OBS CARE(HIGH) ERNESTO MUNOZ RESIDENT July 16, 2024 08:11 KAT CORNELIUS DO July 17, 2024 11:07
[2024-07-16] MEDS: PANTOPRAZOLE 40 MG TAB PO ONE (09:20)
[2024-07-16] MEDS: amLODIPine BESYLATE 5 MG TAB PO SCH (09:21)
[2024-07-16] MEDS: ENOXAPARIN SOD 40 MG/0.4 ML SYRINGE SC SCH (09:22)
[2024-07-16] MEDS: ACETAMINOPHEN 325 MG TAB PO PRN (14:11)
[2024-07-16] MEDS: ATORVASTATIN 20 MG TAB PO ONE (15:10)
[2024-07-16] MEDS: ASPirin 81 mg TAB PO ONE (15:15)
[2024-07-16] MEDS: ACETAMINOPHEN/CODEINE#3 (300/30mg) TAB PO ONE (19:00)
--- NOTE | 2024-07-16 19:44 | DVHINCON2 ---
Date of service: July 16, [address] Munoz Reason for Consultation Dizziness, headache, left facial numbness History of Present Illness Ms. Owen is a 69 years old right-handed female with a history of hypertension, dyslipidemia, arthritis, she came to the [facility] on 07/15/2024 with a chief company of headache. At this time, she was alert and fully oriented, she provided the following history She looks under pressure, as a result she is not well organized the history, but time spent with her, I have obtained the following history She said her problem started on 07/03/2024. At home, she noted her blood pressure was extremely high, 190/127, she was had event where she had shaking all over the body without loss of consciousness, and she remembers the events and remembers her daughter was trying to come her down when she was shaking all over the body she was admitted to the [facility] for two days, her discharge paperwork said diagnosis of hypertension urgency. Coincidentally after she was released home from the [facility], she was constant pressure headache in different part of the head, pressure pain behind the eye, mostly 7/10, and she has been sensitivity to lights. She was relates her blood pressure on waking up is around 120/80, but increased to 148/80 but then back to better range after taking her blood pressure pills she denies a history of headache, one sister has headache and anxiety She once fell left facial drooping however not confirmed by look herself in the mirror. Otherwise denies sided or focal weakness/paresthesia. She also denies recent dizziness She was easily stressed out, she was worries excessively and unnecessary, she was said to have anxiety and was on Wellbutrin with good results, she was also on Xanax previously. Prozac caused numbness Urinalysis, 07/15/2024: Unremarkable UDS, 07/15/2024: Negative CBC, 07/16/2024: Unremarkable CMP, 07/16/2024: ALT: 45 CT head, 07/15/2024: No acute intracranial process Past Medical History Hypertension, lipid profile, arthritis, asthma, anxiety, obesity, no TIA/stroke Past Surgical History Tubal ligation, bilateral carpal tunnel release Family History: FH: atrial fibrillation G8 SISTER Thyroid disease G8 MOTHER G8 SISTER Family History Hypertension, AFib, thyroid disorder, anxiety Social History She was a tobacco smoker, and marijuana smoker, but no history of alcohol or recreational substance abuse Allergies: Coded Allergies: NO KNOWN ALLERGIES (Unverified , 12/18/23) Home Meds Active Scripts Amlodipine Besylate (Amlodipine Besylate) 5 Mg Tab, 1 TAB PO DAILY for 60 Days, #60 TAB Prov:ERNESTO MUNOZ RESIDENT 07/05/24 Acetaminophen W/ Codeine (Tylenol W/Cod #3) 1 Tab Tb, 1 TAB PO Q6HPRN, #10 TAB 0 Refills Prov:MARTIJANECALVIN PA 12/24/23 Sulfamethoxazole W/Trimethopri (Bactrim Ds Tablet) 1 Tab Tb, 1 TAB PO BID for 7 Days, #14 TAB 0 Refills Prov:CALVIN CHAKRABORTY 12/24/23 Cyclobenzaprine Hcl (Cyclobenzaprine Hcl) 5 Mg Tab, 1 TAB PO QHSP, #14 TAB 0 Refills Prov:CALVIN CHAKRABORTY 12/24/23 Methylprednisolone (Medrol Dosepak) 4 Mg Luis Manuel, 4 MG PO UD for 6 Days, #21 TAB UAD Prov:SURYAERIN SEMICONDUCTOR DIES LOADER 12/18/23 Current Medications Current Medications Medications (Trade) Dose Ordered Sig/Froy Route PRN Reason Start Time Stop Time Status Last Admin Acetaminophen (Tylenol Tablet) 325 mg Q4HP PRN PO MILD PAIN (1-3 PAIN SCALE) 07/15/24 23:30 07/16/24 16:39 DC 07/16/24 14:11 Ondansetron HCl (Zofran) 4 mg Q4HP PRN IV NAUSEA / VOMITING 07/15/24 23:30 Docusate Sodium (Colace Capsule) 100 mg BIDPRN PRN PO FOR CONSTIPATION 07/15/24 23:30 Enoxaparin Sodium (Lovenox) 40 mg DAILY SC 07/16/24 10:00 07/16/24 09:22 Amlodipine Besylate (Norvasc Tablet) 5 mg DAILY PO 07/16/24 10:00 07/16/24 09:21 Pantoprazole Sodium (Protonix Tablet) 40 mg DAILY@0600 PO 07/17/24 06:00 Aspirin 81 mg DAILY PO 07/17/24 10:00 Atorvastatin Calcium (Lipitor) 40 mg HS PO 07/16/24 22:00 Acetaminophen (Tylenol Tablet) 650 mg Q6HP PRN PO PAIN SCALE 1-3 OR TEMP>100.4 07/16/24 20:12 Review of Systems As above, the other systems are negative Vital Signs Vital Signs Date Time Temp Pulse Resp B/P (MAP) Pulse Ox O2 Delivery O2 Flow Rate FiO2 07/16/24 17:30 98.0 70 18 133/88 (103) 95 98.0 07/15/24 17:50 Room Air* 0 21 Physical Exam GENERAL EXAM: General: the patient is well developed and nourished. No acute distress. HEENT: Normocephalic, neck is supple, no carotid bruits. No mass. RESPIRATORY: Normal respiratory effort with symmetrical lung expansion. Lungs clear to auscultation. CARDIOVASCULAR: Regular rate and rhythm with no murmurs. S1, S2. ABDOMEN: Soft, nontender, normal bowel sound NEUROLOGICAL: MENTAL STATUS: Awake and alert. Oriented to person, place, time and general circumstances. Able to give personal history. SPEECH, LANGUAGE, HIGHER CORTICAL FUNCTION: no aphasia or dysathria. CRANIAL NERVES: #2: Intact visual mata to confrontation. The optic discs were sharp. #3,4,6: Pupils are equal, round and reactive. EOMs full and conjugate. No evoked nystagmus. #5: Facial sensation intact in all three divisions bilaterally. Mandibular strength intact. #7: Facial muscles symmetrical and strength intact. #8: Hearing grossly normal to voice. #9,10: Uvula and soft palate rise in the midline. Swallow and voice are normal. #11: Trapezius and sternomastoid strength intact bilaterally. #12: Tongue midline. No fasciculations or atrophy. SENSATION: Sensation to touch and pinprick is normal. MOTOR: Normal tone in the upper and lower extremity. Normal muscle bulk. No fasciculations. No abnormal movements or posturing. Muscle strength of the major groups in the upper extremities is 5/5. Muscle strength of the major groups in the lower extremities is 5/5. REFLEXES: Deep tendon reflexes are symmetrical. No pathological reflexes. CEREBELLAR/COORDINATION: Finger to nose and heel to weinberg are normal bilaterally. GAIT/STATION: deferred. Labs/Diagnostic Data Labs Test 07/16/24 05:23 07/16/24 03:35 07/15/24 23:59 07/15/24 23:56 Range/Units White Blood Count 5.2 4.4-10.8 10^3/uL Red Blood Count 4.18 4.0-5.20 10^6/uL Hemoglobin 12.6 12.2-16.2 g/dL Hematocrit 37.3 36.0-46.0 % Mean Corpuscular Volume 89.2 80.0-100.0 fL Mean Corpuscular Hemoglobin 30.1 28.0-32.0 pg Mean Corpuscular Hemoglobin Concent 33.7 32.0-36.0 g/dL Red Cell Distribution Width 13.4 11.8-14.3 % Platelet Count 213 140-450 10^3/uL Mean Platelet Volume 7.6 6.9-10.8 fL Neutrophils (%) (Auto) 53.8 37.0-80.0 % Lymphocytes (%) (Auto) 34.5 10.0-50.0 % Monocytes (%) (Auto) 8.4 0.0-12.0 % Eosinophils (%) (Auto) 2.9 0.0-7.0 % Basophils (%) (Auto) 0.4 0.0-2.0 % Neutrophils # (Auto) 2.8 1.6-8.6 10 ^3/uL Lymphocytes # (Auto) 1.8 0.4-5.4 10 ^3/uL Monocytes # (Auto) 0.4 0-1.3 10 ^3/uL Eosinophils # (Auto) 0.2 0-0.8 10 ^3/uL Basophils # (Auto) 0 0-0.2 10 ^3/uL Nucleated Red Blood Cells 0.0 % Sodium Level 140 136-145 mmol/L Potassium Level 3.5 3.5-5.1 mmol/L Chloride Level 104 98-107 mmol/L Carbon Dioxide Level 30 20-31 mmol/L Anion Gap 6 5-15 Blood Urea Nitrogen 10 9-23 mg/dL Creatinine 0.80 0.550-1.02 mg/dL Glomerular Filtration Rate Calc 81 >90 mL/min BUN/Creatinine Ratio 12.5 10.0-20.0 Serum Glucose 96 74-106 mg/dL Calcium Level 10.1 8.7-10.4 mg/dL Total Bilirubin 0.5 0.2-1.0 mg/dL Aspartate Amino Transferase (AST) 20 13-40 U/L Alanine Aminotransferase (ALT) 45 H 7-40 U/L Alkaline Phosphatase 50 46-116 U/L Total Protein 7.0 5.7-8.2 g/dL Albumin 4.7 3.2-4.8 g/dL Urine Color Colorless Yellow Urine Clarity Clear Clear Urine pH 6.5 5.0-9.0 Urine Specific [place] 1.040 H 1.001-1.035 Urine Protein Negative Negative Urine Ketones Negative Negative Urine Blood Negative Negative /uL Urine Nitrite Negative Negative Urine Bilirubin Negative Negative Urine Urobilinogen Normal Negative mg/dL Urine Leukocyte Esterase Negative Negative /uL Urine RBC 1 0 - 4 /hpf Urine Microscopic WBC 2 0-5 /HPF Urine Squamous Epithelial Cells Few <5 /hpf Urine Bacteria Few H None Seen /hpf Urine Glucose Normal Normal mg/dL Urine Opiates Screen Neg NEGATIVE Urine Fentanyl Screen Neg NEGATIVE Urine Barbiturates Screen Neg NEGATIVE Urine Phencyclidine Screen Neg NEGATIVE Urine Amphetamines Screen Neg NEGATIVE Urine Benzodiazepines Screen Neg NEGATIVE Urine Cocaine Screen Neg NEGATIVE Urine Cannabinoids Screen Neg NEGATIVE Influenza Type A Antigen Negative Negative Influenza Type B Antigen Negative Negative SARS-CoV-2 Antigen (Rapid) Negative NEGATIVE Test 07/15/24 23:50 07/15/24 16:10 Range/Units Direct Bilirubin 0.2 <0.3 mg/dL POC Glucose 90 70-106 mg/dl Microbiology Date/Time Source Procedure Growth Status 07/16/24 08:32 Nose MRSA Screen - Final Complete Assessment This is a difficult consultation because the patient was not a good historian, some symptoms mentioned in the reason for consultation not confirmed Shaking whole-body without loss of consciousness on 07/04/2023 Psychogenic seizure Epileptic seizure, less likely Headache/new onset daily headache Rule out Posterior reversible encephalopathy Anxiety Plan/Recommendation Monitoring Supportive treatment Telemetry EEG MRI brain scan Blood pressure control Aspirin 81 mg daily for now Lipitor 40 mg daily for now Ativan for anxiety control Wellbutrin was recommended however the patient would want to hold off DVT prophylaxis/Lovenox GI prophylaxis/Protonix Tele psych consultation after the patient he was transferred to a hospital room More recommendation per clinical course This is a long consultation Progress extremely poor This medical document was created using an electronic medical record system with [employer] dictation system. Although this document has been carefully reviewed, there may still be some phonetic and typographical errors. These areas are purely typographical due to imperfections of the software programs, and do not reflect any compromise in the patient's medical care. Plan discussed with: Patient, Other NYDIA ROGERS MD July 16, 2024 19:44
[2024-07-16] MEDS ORDERED: ACETAMINOPHEN 325 MG TAB PO PRN (20:12)
[2024-07-16] MEDS: ATORVASTATIN 20 MG TAB PO SCH (21:17)
[2024-07-16] MEDS ORDERED: LORazepam 2MG/ML-1ML VIAL IV PRN (21:30)
[2024-07-17] VITALS (9 sets, daily range): BP systolic 107–121; BP diastolic 50–81; PULSE 61–125; RESP 18; TEMP 96.2–98.8; O2SAT 93–100
[2024-07-17] MEDS: PANTOPRAZOLE 40 MG TAB PO SCH (06:00)
[2024-07-17] MEDS: ASPirin 81 mg TAB PO SCH (09:44)
[2024-07-17] MEDS: LORazepam 0.5 MG TAB PO PRN (09:46)
--- NOTE | 2024-07-17 11:07 | DVHPN2 ---
Reviewed: Care Plan, H&P Changes from previous H/P or p: No Changes General: Per HPI Eyes: No Pain, No Vision change, No Conjunctivae inflammation, No Eyelid inflammation, No Other, No Redness ENT: No Ear pain, No Ear discharge, No Nose pain, No Nose discharge, No Nose congestion, No Mouth pain, No Mouth swelling, No Throat pain, No Throat swelling, No Other Cardiovascular: No Chest Pain; Palpitations; No Orthopnea, No Paroxysmal Noc. Dyspnea, No Edema, No Lt Headedness, No Other Respiratory: No Cough, No Dry, No Shortness of breath, No SOB with excertion, No Wheezing, No Hemoptysis, No Pleuritic Pain, No Sputum, No Other Gastrointestinal: Nausea; No Vomiting, No Abdominal Pain, No Diarrhea, No Constipation, No Melena, No Hematochezia, No Other Genitourinary: No Dysuria, No Frequency, No Incontinence, No Hematuria, No Retention, No Other Musculoskeletal: No other, No neck pain, No shoulder pain, No arm pain, No back pain, No hand pain, No leg pain, No foot pain Skin: No Rash, No Lesions, No Jaundice, No Bruising, No Other Objective Vitals Vital Signs Date Time Temp Pulse Resp B/P (MAP) Pulse Ox O2 Delivery O2 Flow Rate FiO2 07/17/24 09:45 118/63 07/17/24 09:00 98.4 69 18 97 98.4 07/17/24 08:00 Room Air* 0 21 Intake/Output Intake and Output 07/17/24 07:00 Intake Total 1400 ml Output Total 0 ml Balance 1400 ml Intake Oral 1400 ml Output Urine Total 0 ml # Voids 4 Medications Current Medications Medications Dose Ordered Sig/Froy Route Start Time Stop Time Status Last Admin Dose Admin Ondansetron HCl 4 mg Q4HP PRN IV 07/15/24 23:30 Docusate Sodium 100 mg BIDPRN PRN PO 07/15/24 23:30 Enoxaparin Sodium 40 mg DAILY SC 07/16/24 10:00 07/16/24 09:22 40 MG Amlodipine Besylate 5 mg DAILY PO 07/16/24 10:00 07/17/24 09:45 5 MG Pantoprazole Sodium 40 mg DAILY@0600 PO 07/17/24 06:00 Aspirin 81 mg DAILY PO 07/17/24 10:00 07/17/24 09:44 81 MG Atorvastatin Calcium 40 mg HS PO 07/16/24 22:00 Acetaminophen 650 mg Q6HP PRN PO 07/16/24 20:12 Lorazepam 1 mg ONCE PRN IV 07/16/24 21:30 Lorazepam 0.5 mg Q8HP PRN PO 07/16/24 21:30 07/17/24 09:46 0.5 MG Laboratory Results Laboratory Tests 07/16/24 03:35 Urinalysis Test 07/15/24 23:59 Urine Color Colorless (Yellow) Urine Clarity Clear (Clear) Urine pH 6.5 (5.0-9.0) Urine Specific [place] 1.040 (1.001-1.035) Urine Protein Negative (Negative) Urine Ketones Negative (Negative) Urine Blood Negative /uL (Negative) Urine Nitrite Negative (Negative) Urine Bilirubin Negative (Negative) Urine Urobilinogen Normal mg/dL (Negative) Urine Leukocyte Esterase Negative /uL (Negative) Urine RBC 1 /hpf (0 - 4) Urine Microscopic WBC 2 /HPF (0-5) Urine Squamous Epithelial Cells Few /hpf (<5) Urine Bacteria Few /hpf (None Seen) H Urine Glucose Normal mg/dL (Normal) Microbiology Microbiology Date/Time Source Procedure Growth Status 07/16/24 08:32 Nose MRSA Screen - Final Complete Assessment/Plan Assessment/Plan Patient is a 69-year-old female with past medical history of hypertension, dyslipidemia, arthritis, asthma, who comes in due to presyncope, headache and hypertension. According to the patient, she has these distinct episodes that come out of no where where she started experiencing a headache, dizziness, eye pressure, tinnitus, shaking sensation and numbness in the left side of her face. 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 she had similar episode, when she checked her blood pressure was noted to be 180/92 despite being adherent with home antihypertensives. Per patient, the episode resolved over the next couple hours in when she rechecked her blood pressure around bedtime it was 135/90. Patient was recently discharged from the [facility] on 07/05/2024 after being treated for hypertensive urgency. In the ER head CT was done which was largely unremarkable. On review of systems patient is complaining of fatigue, chills, palpitations, nausea and anxiety. UDS negative. Urinalysis nonsignificant. Patient was negative for COVID and flu Patient she was unable to complete an MRI and a neurologic consultation during previous hospitalization which is what she would like this time. Patient will be admitted for further management. PMH-hypertension, dyslipidemia, arthritis, asthma PSH- Full tunnel repair surgery, tubal ligation, valentin castaneda FH-Father: Multiple myeloma ,Mother: Lung cancer Allergy- Personal History/ Social History- Smoking: Quit 35 years ago, prior to that was smoking 1 pack per day for 15 years , Alcohol: Occasionally, last drink on Friday Suspected TIA- Suspected presyncope possibly due to cardiac causes versus neuro causes vs anxiety Headache possibly due to Idiopathic intracranial hypertension versus migraine versus stress headache Generalized weakness Accelerated hypertension Hypertensive heart disease with LVH and left ventricular diastolic dysfunction Rule out pheochromocytoma History of asthma, currently stable - Plan discussed with: Patient Date of Service: July 17, 2024 Billing Provider: KAT CORNELIUS DO Common Visit Codes: [id number] INP/OBS CARE(HIGH) KAT CORNELIUS DO July 17, 2024 11:07
--- NOTE | 2024-07-17 13:06 | DVH ---
EXAM: MRI BRAIN HEAD WO CONTRAST HISTORY: LEFT-SIDED FACIAL NUMBNESS, DIZZINESS, HEAD , LEFT-SIDED FACIAL NUMBNESS, DIZZINESS, HEAD, TECHNIQUE: Multiplanar and multisequence MR imaging of the head was performed. COMPARISON: CT head from 07/15/2024 FINDINGS: The ventricles and subarachnoid spaces are normal in size and configuration. Brain parenchyma is norm al in signal for patient age. There is no midline shift or mass effect. The vascular flow-voids are u nremarkable. Diffusion weighted imaging is not indicative of acute or recent infarct. Paranasal sinus mucosal thickening as well as a mucous retention cyst or polyp in the right maxillary sinus IMPRESSION: No acute or recent infarct. No acute abnormality.
--- NOTE | 2024-07-17 13:50 | DVHINCON2 ---
Date of Service if different f: July 17, 2024 Consultation ([facility]) Progress: Better Labs Laboratory Tests Test 07/15/24 16:10 07/15/24 23:50 07/15/24 23:56 07/15/24 23:59 Bedside Glucose 90 mg/dl (70-106) Direct Bilirubin 0.2 mg/dL (<0.3) Influenza Type A Antigen Negative (Negative) Influenza Type B Antigen Negative (Negative) SARS-CoV-2 Antigen (Rapid) Negative (NEGATIVE) Urine Color Colorless (Yellow) Urine Clarity Clear (Clear) Urine pH 6.5 (5.0-9.0) Urine Specific [place] 1.040 (1.001-1.035) Urine Protein Negative (Negative) Urine Ketones Negative (Negative) Urine Blood Negative /uL (Negative) Urine Nitrite Negative (Negative) Urine Bilirubin Negative (Negative) Urine Urobilinogen Normal mg/dL (Negative) Urine Leukocyte Esterase Negative /uL (Negative) Urine RBC 1 /hpf (0 - 4) Urine Microscopic WBC 2 /HPF (0-5) Urine Squamous Epithelial Cells Few /hpf (<5) Urine Bacteria Few /hpf (None Seen) Urine Glucose Normal mg/dL (Normal) Urine Opiates Screen Neg (NEGATIVE) Urine Fentanyl Screen Neg (NEGATIVE) Urine Barbiturates Screen Neg (NEGATIVE) Urine Phencyclidine Screen Neg (NEGATIVE) Urine Amphetamines Screen Neg (NEGATIVE) Urine Benzodiazepines Screen Neg (NEGATIVE) Urine Cocaine Screen Neg (NEGATIVE) Urine Cannabinoids Screen Neg (NEGATIVE) Test 07/16/24 03:35 07/16/24 05:23 White Blood Count 5.2 10^3/uL (4.4-10.8) Red Blood Count 4.18 10^6/uL (4.0-5.20) Hemoglobin 12.6 g/dL (12.2-16.2) Hematocrit 37.3 % (36.0-46.0) Mean Corpuscular Volume 89.2 fL (80.0-100.0) Mean Corpuscular Hemoglobin 30.1 pg (28.0-32.0) Mean Corpuscular Hemoglobin Concent 33.7 g/dL (32.0-36.0) Red Cell Distribution Width 13.4 % (11.8-14.3) Platelet Count 213 10^3/uL (140-450) Mean Platelet Volume 7.6 fL (6.9-10.8) Neutrophils (%) (Auto) 53.8 % (37.0-80.0) Lymphocytes (%) (Auto) 34.5 % (10.0-50.0) Monocytes (%) (Auto) 8.4 % (0.0-12.0) Eosinophils (%) (Auto) 2.9 % (0.0-7.0) Basophils (%) (Auto) 0.4 % (0.0-2.0) Neutrophils # (Auto) 2.8 10 ^3/uL (1.6-8.6) Lymphocytes # (Auto) 1.8 10 ^3/uL (0.4-5.4) Monocytes # (Auto) 0.4 10 ^3/uL (0-1.3) Eosinophils # (Auto) 0.2 10 ^3/uL (0-0.8) Basophils # (Auto) 0 10 ^3/uL (0-0.2) Nucleated Red Blood Cells 0.0 % Sodium Level 140 mmol/L (136-145) Potassium Level 3.5 mmol/L (3.5-5.1) Chloride Level 104 mmol/L (98-107) Carbon Dioxide Level 30 mmol/L (20-31) Anion Gap 6 (5-15) Blood Urea Nitrogen 10 mg/dL (9-23) Creatinine 0.80 mg/dL (0.550-1.02) Glomerular Filtration Rate Calc 81 mL/min (>90) BUN/Creatinine Ratio 12.5 (10.0-20.0) Serum Glucose 96 mg/dL (74-106) Calcium Level 10.1 mg/dL (8.7-10.4) Total Bilirubin 0.5 mg/dL (0.2-1.0) Aspartate Amino Transf (AST/SGOT) 20 U/L (13-40) Alanine Aminotransferase (ALT/SGPT) 45 U/L (7-40) Alkaline Phosphatase 50 U/L (46-116) Total Protein 7.0 g/dL (5.7-8.2) Albumin 4.7 g/dL (3.2-4.8) Microbiology Date/Time Source Procedure Growth Status 07/16/24 08:32 Nose MRSA Screen - Final Complete Appetite: Good Side effects of medications: Yes Side effects of medications: EPS Appearance: Stated age Psychomotor activity: WNL Behavioral: Cooperative Eye contact: Appropriate Speech: WNL Affect: Appropriate Mood: Euthymic Thought processes: Linear/Goal-directed Thought content: WNL Suicidal ideations: Absent Homicidal ideations: Absent Orientation: Person, Place, Time, Situation Memory intact: Recent Intellect: Average Abstractability: WNL Concentration: Adequate Attention: Adequate Judgement: WNL Insight: Fair Vitals Vital Signs Date Time Temp Pulse Resp B/P (MAP) Pulse Ox O2 Delivery O2 Flow Rate FiO2 07/17/24 12:56 98.6 78 18 121/74 (90) 100 98.6 07/17/24 08:00 Room Air* 0 21 Current medications Current Medications Medications Dose Ordered Sig/Froy Route Start Time Stop Time Status Last Admin Dose Admin Ondansetron HCl 4 mg Q4HP PRN IV 07/15/24 23:30 Docusate Sodium 100 mg BIDPRN PRN PO 07/15/24 23:30 Enoxaparin Sodium 40 mg DAILY SC 07/16/24 10:00 07/16/24 09:22 40 MG Amlodipine Besylate 5 mg DAILY PO 07/16/24 10:00 07/17/24 09:45 5 MG Pantoprazole Sodium 40 mg DAILY@0600 PO 07/17/24 06:00 Aspirin 81 mg DAILY PO 07/17/24 10:00 07/17/24 09:44 81 MG Atorvastatin Calcium 40 mg HS PO 07/16/24 22:00 Acetaminophen 650 mg Q6HP PRN PO 07/16/24 20:12 Lorazepam 1 mg ONCE PRN IV 07/16/24 21:30 Lorazepam 0.5 mg Q8HP PRN PO 07/16/24 21:30 07/17/24 09:46 0.5 MG Treatment plan discussed: With staff Medication adjusted: Yes Labs ordered: No Psychotherapy provided: Yes Type: Voluntary Diagnosis: Adjustment disorder with anxiety. Plan : Start inderal 5mg to 20 mg PO TID PRN anxiety. Start Magnesium glycinate 200 mg qhs (OTC) for restless leg, anxiety support and sleep support. No psychiatric meds recommended. Pt to start OP psychotherapy to address stage of life changes. Pt in agreement with plan. History of Present Illness Reason for Consult : Anxiety. HPI : Pt was admitted for vague neurological symptoms and cleared for neurologic pathology by primary team and neurology based on exam and imaging. Pt c/o of bout of severe anxiety and panic attacks with shakiness - like a seizure that are becoming more frequent since she has started to contemplate and transition to retired life. Pt is basically having a late life crisis. Pt has good insight into this and wants something for relief from these symptoms. Pt has triend prozac in the past with por effect and was on wellbutrin for 6 months in late 30s for depression. Pt is fond of going to the gym, leading a healthy lifestyle and staying fit. Encouraged pt to resume said lifestyle, pt motivated to do so. Encouraged pt to invest in psychotherapy to come to terms with stage of life changes. Pt agreed. Offered inderal 1 5 mg to 20 mg PO TID PRN anxiety, given education about dosing. Pt in agreement with trial. Pt denies current depression, psychotic illness, bipolar disorder, OCD etc. Also denies any SI, HI or AVH or hx of SI or SA. Past Psychiatric History : OP psych in 30s. Past Medical History : HTN. HLD. Substance use: Pt occasionally uses cannabis gummies for anxiety relief. Drinks 1 to 2 drinks a week. Father was an alcoholic, pt will stop drinking completely help keep the chances of that happening to herself, low. Social History : Assessment/Diagnosis/Plan Reviewed: Consults, Care Plan, Labs, Medications, Radiology ANNETTE GAMBLE MD July 17, 2024 13:50
[2024-07-17] MEDS: MELATONIN 5 MG TAB PO SCH (22:38)
[2024-07-18 01:00] VITALS: BP 105/54; PULSE 59; RESP 18; TEMP 97.7; O2SAT 92
[2024-07-18 05:00] VITALS: BP 104/75; PULSE 68; RESP 18; TEMP 96.7; O2SAT 93
[2024-07-18 08:00] VITALS: PULSE 74
[2024-07-18 08:29] VITALS: PULSE 63; RESP 17; O2SAT 95
[2024-07-18 08:44] VITALS: BP 118/68; PULSE 63; RESP 17; TEMP 97.8; O2SAT 95
--- NOTE | 2024-07-18 10:39 | DVHDSRES ---
Discharge Summary Date of Admission Resident Creating Document: ERNESTO MUNOZ RESIDENT July 15, 2024 at 23:30 Date of Discharge: July 18, 2024 Admitting Diagnosis Suspected TIA Labs/Diagnostic Data: Laboratory Results Test 07/16/24 05:23 07/16/24 03:35 07/15/24 23:59 07/15/24 23:56 White Blood Count 5.2 10^3/uL (4.4-10.8) Red Blood Count 4.18 10^6/uL (4.0-5.20) Hemoglobin 12.6 g/dL (12.2-16.2) Hematocrit 37.3 % (36.0-46.0) Mean Corpuscular Volume 89.2 fL (80.0-100.0) Mean Corpuscular Hemoglobin 30.1 pg (28.0-32.0) Mean Corpuscular Hemoglobin Concent 33.7 g/dL (32.0-36.0) Red Cell Distribution Width 13.4 % (11.8-14.3) Platelet Count 213 10^3/uL (140-450) Mean Platelet Volume 7.6 fL (6.9-10.8) Neutrophils (%) (Auto) 53.8 % (37.0-80.0) Lymphocytes (%) (Auto) 34.5 % (10.0-50.0) Monocytes (%) (Auto) 8.4 % (0.0-12.0) Eosinophils (%) (Auto) 2.9 % (0.0-7.0) Basophils (%) (Auto) 0.4 % (0.0-2.0) Neutrophils # (Auto) 2.8 10 ^3/uL (1.6-8.6) Lymphocytes # (Auto) 1.8 10 ^3/uL (0.4-5.4) Monocytes # (Auto) 0.4 10 ^3/uL (0-1.3) Eosinophils # (Auto) 0.2 10 ^3/uL (0-0.8) Basophils # (Auto) 0 10 ^3/uL (0-0.2) Nucleated Red Blood Cells 0.0 % Sodium Level 140 mmol/L (136-145) Potassium Level 3.5 mmol/L (3.5-5.1) Chloride Level 104 mmol/L (98-107) Carbon Dioxide Level 30 mmol/L (20-31) Anion Gap 6 (5-15) Blood Urea Nitrogen 10 mg/dL (9-23) Creatinine 0.80 mg/dL (0.550-1.02) Glomerular Filtration Rate Calc 81 mL/min (>90) BUN/Creatinine Ratio 12.5 (10.0-20.0) Serum Glucose 96 mg/dL (74-106) Calcium Level 10.1 mg/dL (8.7-10.4) Total Bilirubin 0.5 mg/dL (0.2-1.0) Aspartate Amino Transferase (AST) 20 U/L (13-40) Alanine Aminotransferase (ALT) 45 U/L (7-40) Alkaline Phosphatase 50 U/L (46-116) Total Protein 7.0 g/dL (5.7-8.2) Albumin 4.7 g/dL (3.2-4.8) Urine Color Colorless (Yellow) Urine Clarity Clear (Clear) Urine pH 6.5 (5.0-9.0) Urine Specific [place] 1.040 (1.001-1.035) Urine Protein Negative (Negative) Urine Ketones Negative (Negative) Urine Blood Negative /uL (Negative) Urine Nitrite Negative (Negative) Urine Bilirubin Negative (Negative) Urine Urobilinogen Normal mg/dL (Negative) Urine Leukocyte Esterase Negative /uL (Negative) Urine RBC 1 /hpf (0 - 4) Urine Microscopic WBC 2 /HPF (0-5) Urine Squamous Epithelial Cells Few /hpf (<5) Urine Bacteria Few /hpf (None Seen) Urine Glucose Normal mg/dL (Normal) Urine Opiates Screen Neg (NEGATIVE) Urine Fentanyl Screen Neg (NEGATIVE) Urine Barbiturates Screen Neg (NEGATIVE) Urine Phencyclidine Screen Neg (NEGATIVE) Urine Amphetamines Screen Neg (NEGATIVE) Urine Benzodiazepines Screen Neg (NEGATIVE) Urine Cocaine Screen Neg (NEGATIVE) Urine Cannabinoids Screen Neg (NEGATIVE) Influenza Type A Antigen Negative (Negative) Influenza Type B Antigen Negative (Negative) SARS-CoV-2 Antigen (Rapid) Negative (NEGATIVE) Test 07/15/24 23:50 07/15/24 16:10 Direct Bilirubin 0.2 mg/dL (<0.3) POC Glucose 90 mg/dl (70-106) Other Laboratory Tests 07/16/24 03:35 Brief Hx & Hospital Course: Discharge summary Patient is a 69-year-old female with past medical history of hypertension, dyslipidemia, arthritis, asthma, who comes in due to presyncope, headache and hypertension. According to the patient, she has these distinct episodes that come out of no where where she started experiencing a headache, dizziness, eye pressure, tinnitus, shaking sensation and numbness in the left side of her face. 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 she had similar episode, when she checked her blood pressure was noted to be 180/92 despite being adherent with home antihypertensives. Per patient, the episode resolved over the next couple hours in when she rechecked her blood pressure around bedtime it was 135/90. Patient was recently discharged from the [facility] on 07[facility]24 after being treated for hypertensive urgency. In the ER head CT was done which was largely unremarkable. On review of systems patient is complaining of fatigue, chills, palpitations, nausea and anxiety. UDS negative. Urinalysis nonsignificant. Patient was negative for COVID and flu . Patient BPH CT scan and carotid Doppler recently was negative, MRI of the brain negative. Patient was seen by Psychiatry, recommendation reviewed appreciate. Psychiatry recommended for intraoral 5220 mg p.o. t.i.d. PRN, magnesium glycinate 20 mg q.h.s. [id number] for restless leg or anxiety or sips support. Patient's meds were sent to the pharmacy electronically. Patient was advised to follow up with the primary care physician in 1 week and also to follow up with psychiatrist in 1-2 weeks for further evaluation and care. Patient verbalized understanding. Patient's meds were sent to the pharmacy electronically. Patient was hemodynamically stable on discharge. Operations or Procedures [place] [id number] Ph: [phone] DIAGNOSTIC IMAGING Diagnostic Imaging Report : [id number] Signed PATIENT: RICK FREEMAN ACCT: [id number] UNIT: [id number] : 1955 LOC: ER ROOM / BED: / AGE / SEX: 69 / F ADM STATUS: REG ER SERVICE [id number] ORDERING PHYSICIAN: ISHMAEL WASHBURN MD PROCEDURE(s): HWOCT - HEAD WITHOUT CONTRAST REASON: Left facial numbness ORDER NUMBER(s): [id number], ACCESSION NUMBER(s): [id number] EXAM: CT HEAD WITHOUT CONTRAST; DATE: 07/15/2024 04:09 PM HISTORY: Left facial numbness COMPARISON: CT HEAD WITHOUT CONTRAST on DOS: 07/03/24 TECHNIQUE: Axial images were obtained and reformatted in coronal and sagittal planes. All CT scans at this medical facility are performed using dose modulation techniques as appropriate to a performed exam including the following: Automated exposure control was utilized; adjustment of the MA and/or KV according to patient size; and use of iterative reconstruction technique. CT Dose: CTDI volume is 54 mGy. Dose-length product is 869 mGy*cm FINDINGS: Supratentorial Region: No evidence for large acute territorial ischemia. No intracranial hemorrhage is noted. Posterior Fossa: No acute abnormality. Brainstem: Unremarkable. Sellar/Suprasellar Region: Unremarkable. Ventricles, Cisterns, Sulci: Age-appropriate. Orbits: Unremarkable. Paranasal Sinuses: Unremarkable. Mastoid Air Cells: A large mucous retention cyst in the right maxillary sinus noted. Vasculature: Unremarkable. Bones/Soft Tissues: No acute abnormality. Other: None. IMPRESSION: 1. No acute intracranial process. ATED BY: NURIS WATERMAN MD DICTATED DATE/TIME: 07/15/24 163 SIGNED BY: NURIS WATERMAN MD SIGNED DATE/TIME: 07/15/24 1632 CC: [place] [id number] Ph: [phone] DIAGNOSTIC IMAGING Diagnostic Imaging Report : [id number] Signed PATIENT: RICK FREEMAN ACCT: [id number] UNIT: [id number] : 1955 LOC: OVERFLOW ROOM / BED: [address] [place] [address] AGE / SEX: 69 / F ADM STATUS: ADM IN SERVICE 29 ORDERING PHYSICIAN: JENNIFER GAMBLE RESIDENT PROCEDURE(s): ABPLIV - CT AB PEL WITH IV CON ONLY REASON: adrenal mass? pheo? ORDER NUMBER(s): [id number], ACCESSION NUMBER(s): [id number] CLINICAL HISTORY: adrenal mass pheo TECHNIQUE: CT of the abdomen and pelvis was performed with intravenous contrast. 100 mL Omnipaque 300 injected This exam was performed according to our departmental dose optimization program. Up-to-date CT equipment and radiation dose reduction techniques are utilized as appropriate. CTDIVol: 13.33 mGy DLP: 762.41 mGy-cm WID: COMPARISON: None FINDINGS: Lower Thorax: Unremarkable Liver and Biliary system: Mild dilatation of the common bile duct measuring 9.7 mm on coronal image 43, though tapers distally. No intrahepatic bile duct dilatation. Unremarkable liver. Gallbladder is normal caliber. Spleen: Unremarkable. Adrenal Glands and Kidneys: Unremarkable. Pancreas and Retroperitoneum: Unremarkable. Aorta and Major Vessels: Aortoiliac vessels are patent and normal caliber. There is mild mixed atherosclerotic plaque in the abdominal aorta. Bowel, Mesentery and Peritoneal space: Normal caliber small and large bowel. Normal appendix. No mesenteric lymphadenopathy. No free air or fluid collection. Pelvis: A calcified fibroid in the anterior uterine body. There is mild bladder wall thickening although minimally distended. There is no pelvic lymphadenopathy. The ovaries are grossly normal apart from a small left ovarian postmenopausal cyst on series 2, image 72. Abdominal wall and Osseous Structures: Mild lower thoracic and lumbar spondylosis. No destructive osseous lesion. IMPRESSION: 1. Normal adrenal glands. 2. No bowel obstruction, fluid collection, or free air. Normal appendix. ATED BY: TUAN WONG MD DICTATED DATE/TIME: 07/16/24149 SIGNED BY: TUAN WONG MD SIGNED DATE/TIME: 07/16/24149 CC: [place] [id number] Ph: [phone] DIAGNOSTIC IMAGING Diagnostic Imaging Report : [id number] Signed PATIENT: RICK FREEMAN ACCT: [id number] UNIT: [id number] : 1955 [facility] AGE / SEX: 69 / F ADM STATUS: ADM IN SERVICE 1056 ORDERING PHYSICIAN: ERNESTO MUNOZ RESIDENT PROCEDURE(s): MBHL - BRAIN HEAD WO CONTRAST REASON: LEFT-SIDED FACIAL NUMBNESS, DIZZINESS, HEAD ORDER NUMBER(s): [id number], ACCESSION NUMBER(s): [id number] EXAM: MRI BRAIN HEAD WO CONTRAST HISTORY: LEFT-SIDED FACIAL NUMBNESS, DIZZINESS, HEAD , LEFT-SIDED FACIAL NUMBNESS, DIZZINESS, HEAD, TECHNIQUE: Multiplanar and multisequence MR imaging of the head was performed. COMPARISON: CT head from 07/15/2024 FINDINGS: The ventricles and subarachnoid spaces are normal in size and configuration. Brain parenchyma is normal in signal for patient age. There is no midline shift or mass effect. The vascular flow-voids are unremarkable. Diffusion weighted imaging is not indicative of acute or recent infarct. Paranasal sinus mucosal thickening as well as a mucous retention cyst or polyp in the right maxillary sinus IMPRESSION: No acute or recent infarct. No acute abnormality. ATED BY: TUAN WONG MD DICTATED DATE/TIME: 07/17/24 1304 SIGNED BY: TUAN WONG MD SIGNED DATE/TIME: 07/17/24 1304 CC: Condition at Discharge: Stable Final Diagnosis/Problems List Hypertensive urgency Suspected TIA, ruled out acute infarction or hemorrhage Suspected presyncope likely due to UTI Headache , left-sided facial numbness likely due to TIA Adjustment disorder Anxiety Hypertensive heart disease with LVH and left ventricular diastolic dysfunction Pheochromocytoma could not be ruled out History of asthma, currently stable Discharge Disposition: Home Discharge Instruct/Medications Activity: No Restrictions, As Tolerated Follow Up/Referral: Follow up with the primary care physician in 1 week Please follow up with the psychiatrist with a referral from primary care physician for further workup of adjustment disorder and anxiety Medications: Inderal 20 mg ER daily prn Resume other home medications Discharge Statement: "Patient was advised to return to the ER or call 911 if any headaches, dizziness, shortness of breath, chest pain, abdominal pain, bleeding, fevers, or worsening of medical condition. Patient was counseled about treatment plan, medications, possible side effects, patientverbalized understanding. All questions were answered to the best of my ability. This discharge took greater then 30 minutes in planning, reviewing documentation, counseling the patient, and discussing with other team members." ASSESSMENT ASSESSMENT Assessment presyncope Date of Service: July 18, 2024 Billing Provider: KAT CORNELIUS DO Common Visit Codes: 64860-ZJS/OBS DISCH DAY >30min ERNESTO MUNOZ RESIDENT July 18, 2024 10:39 KAT CORNELIUS DO July 18, 2024 11:20
[2024-07-18] MEDS ORDERED: ALPR0.5T PO (10:46)
[2024-07-18] MEDS ORDERED: PROP60CA34 PO (10:46)
[2024-07-18] MEDS ORDERED: PROPRANOLOL HCL 20 MG TAB PO SCH (14:00)
== END 2024-07-18 11:40 | disposition home or self-care (01) | DRG 69 ==
LOC: ER 15:51 → OVERFLOW 23:30 → TELE-CENTR 07-16 21:16
PROVIDERS: ADMIT Internal Medicine; ATTEND Emergency Medicine
DX: G45.9 Transient cerebral ischemic attack, unspecified (principal); N39.0 Urinary tract infection, site not specified; G93.2 Benign intracranial hypertension; F43.22 Adjustment disorder with anxiety; F17.200 Nicotine dependence, unspecified, uncomplicated; I16.0 Hypertensive urgency; E78.5 Hyperlipidemia, unspecified; R29.810 Facial weakness; J45.909 Unspecified asthma, uncomplicated; Z20.822 Contact with and (suspected) exposure to COVID-19; E66.9 Obesity, unspecified; F32.A Depression, unspecified; Z82.49 Family history of ischemic heart disease and other diseases of the circulatory system; Z79.1 Long term (current) use of non-steroidal anti-inflammatories (NSAID); Z79.899 Other long term (current) drug therapy; Z80.7 Family history of other malignant neoplasms of lymphoid, hematopoietic and related tissues; Z80.1 Family history of malignant neoplasm of trachea, bronchus and lung; Z79.82 Long term (current) use of aspirin; Z81.1 Family history of alcohol abuse and dependence; Z68.31 Body mass index [BMI] 31.0-31.9, adult; Z86.73 Personal history of transient ischemic attack (TIA), and cerebral infarction without residual deficits; D35.00 Benign neoplasm of unspecified adrenal gland; I11.9 Hypertensive heart disease without heart failure
CPT/HCPCS: 36415; 70450; 70551; 74177; 80048; 80053; 80076; 80307; 81001; 82962; 83835; 85025; 87081; 87426; 87804; 93005; 95819; 96360; 99291; G0378